=== PATIENT | female | born 1935 | race Caucasian/White ===

== ENCOUNTER 2017-10-28 18:33 | Inpatient (IN) ==
[2017-10-28] MEDS ORDERED: Naloxone 0.4 MG/ML INJ IVP PRN (23:56)
[2017-10-29] MEDS ORDERED: D5% in Water 1,000 ML IVC PRN (00:11)
[2017-10-29] MEDS ORDERED: Dextrose Gel 15 GM/37.5 ML TUBE PO PRN ×2 (00:11)
[2017-10-29] MEDS ORDERED: *HR* Dextrose 50 % in Water (Syg) 50 ML SYRINGE IVP PRN (00:11)
[2017-10-29] MEDS ORDERED: Nitroglycerin 0.4 MG TAB.SUBL SL PRN (00:19)
--- NOTE | 2017-10-29 00:19 | Internal Med History&Physical ---
Date of Encounter: 10/28/17 Time of Encounter: 23:00 Internal Medicine - H&P: HPI Chief complaint: Chest pain Admitted From: Home Plans for Post Hospital Care: Home History of present illness: Ms. Conroy is a 82 year old female transferred from [facility]. Patient present to ER for chest pain. Past medical history is significant for CAD S/P stent, A. fib on xarelto, diabetes, hypertension, HAIM on night oxygen. Patient said she has exertional shortness of breath and chest pain started from about 2 weeks ago. Symptoms is getting worse progressively. Small exertion can cause the pain and shortness of breath. Symptoms lasted several minutes and resolved after rest. Patient denies nausea, vomiting, or diaphoresis during chest pain. The chest pain located on mid chest, no radiation. In [facility], EKG shows A. fib, no significant ST changes. Chest x-ray negative. Patient was transferred to our hospital for further management. Past Med Surg Social Fam HX - Past Medical History Medical history: arthritis, asthma, atrial fibrillation, COPD, coronary artery disease, diabetes, GERD, hyperlipidemia, hypertension, renal disease, thyroid disease, other Psychiatric history: anxiety, depression, other - Past Surgical History Surgical History: cholecystectomy, knee replacement, orthopedic, other, EDEL/BSO , other - Social History Smoking Status: Never smoker Smokeless Tobacco Status: No Alcohol use: none Drug use: none - Family History Mother Adopted: No Living Status: Hx Family Cardiac Disorders: Yes Hx Family Endocrine Disorder: Yes (DM) Father Adopted: No Living Status: Hx Family Cancer: Yes (prostate) Brother Adopted: No Living Status: Still Living Hx Family Cardiac Disorders: Yes Hx Family Endocrine Disorder: Yes Sister Adopted: No Living Status: Still Living Hx Family Cardiac Disorders: No Hx Family Neurologic Disorders: Yes (CVA in [facility]) Internal Medicine - H&P: Meds Amiodarone [Cordarone] 200 mg PO DAILY 01/09/15 [History] Aspirin 81 mg PO DAILY 01/09/15 [History] Atorvastatin Calcium [Lipitor] 40 mg PO DAILY 01/09/15 [History] Folic Acid 1 mg PO DAILY 01/09/15 [History] Metoprolol [Lopressor] 25 mg PO BID 01/09/15 [History] Mv,Iron,Min/Folic Acid/Biotin [Hair, Skin and Nails Softgel] 66.7 mcg PO DAILY 01/09/15 [History] Oxygen 2 l NS HS 01/09/15 [History] Pantoprazole Sodium 40 mg PO DAILY 01/09/15 [History] Sertraline HCl [Zoloft] 50 mg PO DAILY 01/09/15 [History] Ferrous Sulfate [Iron Supplement] 325 mg PO DAILY 11/14/15 [History] Insulin LISPRO [Humalog Kwikpen U-100] 10 - 14 unit SQ DAILY 11/14/15 [History] Methotrexate [Otrexup] 5 mg PO QWEEK 11/14/15 [History] Naproxen Sodium [Aleve] 220 mg PO BID 11/14/15 [History] [place]-3 Fatty Acids [Fish Oil] 300 mg PO DAILY 11/14/15 [History] Amoxicillin [Amoxil] 500 mg PO TID #30 capsule 06/13/17 [Rx] HYDROcodone BIT/Homatropine LQ [Hycodan Syrup] 5 mg PO TID PRN #65 syrup [Rx] 3 Allergy/AdvReac Type Severity Reaction Status Date / Time citalopram Allergy unknown Verified 05/19/16 15:05 DASH Inhibitors AdvReac Cough Verified 05/19/16 15:05 ciprofloxacin [From Cipro] AdvReac edema Verified 05/19/16 15:05 doxycycline AdvReac Rash Verified 05/19/16 15:05 NSAIDS (Non-Steroidal AdvReac CONTRAINDIC Verified 05/19/16 15:05 Anti-Inflamma ATION All Systems PM: A 10-system review of systems was performed and is negative for pertinent findings except as documented above in the HPI. - Constitutional Vitals: Temp Pulse Resp BP Pulse Ox 97.8 F 83 18 174/85 95 10/28/17 23:11 10/28/17 23:11 10/28/17 23:11 10/28/17 23:11 10/28/17 23:11 General appearance: Present: A&O X 3, no acute distress, answers questions appropriately - Head Head exam: Present: atraumatic, normocephalic - Eye Eye exam: Present: PERRL, conjuntiva pink, sclera anicteric Pupils: Present: PERRL - Neck Neck exam general surgery: Present: supple, trachea midline. Absent: lymphadenopathy - Respiratory Respiratory exam: Present: CTAB. Absent: accessory muscle use, rales, rhonchi, wheezes - Cardiovascular Cardiovascular exam: Present: irregular rhythm, +S1, +S2. Absent: diastolic murmur, gallop, rubs, systolic murmur - GI/Abdominal GI/Abdominal exam: Present: normal bowel sounds, soft, no peritoneal signs. Absent: distended, tenderness - Extremities Exam Extremities exam: Present: pedal edema (Mild pedal edema bilaterally), warm, radial pulses palpable and symmetrical. Absent: calf tenderness, cyanotic - Neurological Exam Neurological exam: Present: CN II-XII intact, oriented X3, no focal deficits. Absent: pronater drift, facial droop, speech deficit - Skin Skin exam: Present: dry, intact Internal Med - H&P Results - EKG Data -: EKG Interpreted by Myself (Anel Fib, HR wnl) - Assessment and plan (1) Chest pain Current Visit: Yes Status: Acute Assessment and plan: Patient has chest pain on exertion. History of CAD S/P stent. The pain is more like stable angina. - Place patient on continuous cardiac monitoring. - Track 3 sets of troponin - Echocardiogram - We will consult cardiology to help the management. Qualifiers: Ischemic chest pain type: stable angina pectoris Qualified Code(s): I20.8 - Other forms of angina pectoris (2) Atrial fibrillation Current Visit: No Status: Acute Assessment and plan: Heart rate is well controlled at this point. Patient is on xarelto. Will hold xarelto because of positive guaiac test at this point. Continue ASA. Qualifiers: Atrial fibrillation type: chronic Qualified Code(s): I48.2 - Chronic atrial fibrillation (3) Coronary artery disease Current Visit: No Status: Acute Assessment and plan: Continue home medications aspirin, beta aditi, and statin, add NTG SL for chest pain. Qualifiers: Coronary Disease-Associated Artery/Lesion type: [place] artery [place] vs. transplanted heart: [place] heart Associated angina: with stable angina Qualified Code(s): I25.118 - Atherosclerotic heart disease of [place] coronary artery with other forms of angina pectoris (4) Stool guaiac positive Current Visit: No Status: Acute Assessment and plan: Patient is on xarelto for A. fib. Mild hemoglobin drop with guaiac positive. Vitals are stable. - Continue closely monitor vitals and hemoglobin level. - Consul GI for further management (5) Chronic kidney disease (CKD) stage G3a/A1, moderately decreased glomerular filtration rate (GFR) between 45-59 mL/min/1.73 square meter and albuminuria creatinine ratio less than 30 mg/g Current Visit: No Status: Chronic Assessment and plan: Stable at baseline (6) Diabetes mellitus Current Visit: No Status: Chronic Assessment and plan: Place patient on basal and sliding scale insulin coverage Qualifiers: Diabetes mellitus type: type 2 Diabetes mellitus fpc insulin use: with fpc use Diabetes mellitus complication status: with kidney complications Diabetes mellitus complication detail: with chronic kidney disease Chronic kidney disease stage: stage 3 (moderate) Qualified Code(s): E11.22 - Type 2 diabetes mellitus with diabetic chronic kidney disease; N18.3 - Chronic kidney disease, stage 3 (moderate); Z79.4 - terminal superintendent (current) use of insulin (7) CHF (congestive heart failure) Current Visit: Yes Status: Suspected Assessment and plan: Patient has exertional shortness of breath, elevated BNP, mild bilateral leg edema. Consider CHF. - We will start fluid restriction and low dose Lasix - Check echocardiogram - Cardiology consult for further management. Qualifiers: Heart failure type: unspecified Heart failure chronicity: acute on chronic Qualified Code(s): I50.9 - Heart failure, unspecified (8) HAIM (obstructive sleep apnea) Current Visit: Yes Status: Acute Assessment and plan: Patient uses nasal cannula oxygen at home during night. Will continue. - Time Spent With Patient Total time spent is greater than 50% in coordination of care (as documented) at patient's floor/unit and/or counseling patient: 40 minutes Greater than 35 minutes
[2017-10-29 01:14] LABS: Basophils # 0.1 K/mcL (0.0-0.2); Basophils % 0.8 %; Eosinophils # 0.3 K/mcL (0.0-0.6); Eosinophils % 3.6 %; Hematocrit 30.6 % (35.3-44.9); Hemoglobin 10.3 g/dL (11.5-15.4); Lymphocytes # 2.4 K/mcL (0.6-4.6); Lymphocytes % 25.4 %; Mean Corpuscular HGB Conc 33.7 g/dL (31.6-35.5); Mean Corpuscular Hemoglobin 31.8 pg (28.0-33.3); Mean Corpuscular Volume 94.4 fL (83.0-100.0); Mean Platelet Volume 11.4 fL (9.4-12.4); Monocytes # 0.7 K/mcL (0.0-1.3); Monocytes % 7.5 %; Neutrophils # 5.8 K/mcL (1.6-8.9); Platelet Count 168 K/mcL (140-400); Red Blood Count 3.24 M/mcL (3.82-4.97); Red Cell Distribution Width 15.3 % (11.5-14.5); Segmented Neutrophils % 61.7 %
[2017-10-29 01:34] LABS: Calcium 9.1 mg/dL (8.6-10.3); Chol/HDL Ratio 2.3 (0-4.9); Magnesium 1.8 mg/dL (1.6-2.6)
[2017-10-29 01:47] LABS: INR 1.3; Prothrombin Time 14.4 Seconds (9.4-12.1)
[2017-10-29] MEDS: Furosemide 20 MG/2 ML VIAL IVP SCH ×2 (02:14→08:19)
[2017-10-29] MEDS: Insulin LISPRO 300 UNITS/3 ML VIAL SQ SCH ×4 (08:01→20:54)
[2017-10-29] MEDS: Aspirin 81 MG TAB.CHEW PO SCH (08:19)
[2017-10-29] MEDS: Insulin DETEMIR 100 UNIT/ML X5UNITS SQ SCH (12:56)
--- NOTE | 2017-10-29 13:51 | Gastroenterology Consult Note ---
Date of Encounter: 10/29/17 Time of Encounter: 13:30 - Assessment and plan (1) Chronic anemia Current Visit: No Status: Acute Assessment and plan: Hgb 10.3 this AM. Continue to monitor CBC and transfuse PRBC as needed. No overt bleeding at this time. Will hold on EGD/colonoscopy at this time. If Hgb drops, will consider EGD/colonoscopy on Wednesday or Wednesday. (2) Stool guaiac positive Current Visit: No Status: Acute Assessment and plan: No overt bleeding at this time. No indication for colonoscopy. Will follow as outpatient. Monitor for bleeding. If Hgb decreases will consider EGD/ colonoscopy on Wednesday or Wednesday. (3) Chest pain Current Visit: Yes Status: Acute Assessment and plan: Troponin negative x2. Management per primary team. Qualifiers: Ischemic chest pain type: stable angina pectoris Qualified Code(s): I20.8 - Other forms of angina pectoris - Time Spent With Patient Total time spent is greater than 50% in coordination of care (as documented) at patient's floor/unit and/or counseling patient: GI History of Present Illness - Data of Consult Patient: new to practice Consult date: 10/29/17 Requesting Physician: Meenakshi Willoughby - Consult Narrative Reason for consult: FOBT positive History of present illness: Ms. Conroy is a 82 year old female with PMHx of arthritis, asthma, A fib, COPD, HAIM on night oxygen, CAD s/p stent, DM, GERD, HLD, HTN, renal disease, and thyroid disease who presented to [place] [facility] with chest pain. She complains of exertional shortness of breath and chest pain started from about 2 weeks ago. Symptoms are getting progressively worse. Symptoms lasted several minutes and resolved after rest. Patient denies nausea, vomiting, or diaphoresis during chest pain. We were consulted with mild anemia, Hgb 10.3 this AM. Pt has history of chronic anemia. She reports noticing blood in her stool once or twice about 2 weeks ago, and none since that time. She reports history of hemorrhoids. Procedures: Colonoscopy 11/14/2015 Dr. Austin: Diverticulosis. EGD 12/13/2014 Dr. Austin: Normal. NSAIDs: Aleve, ASA Anticoagulation: Xarelto Past Med Surg Social Fam HX - Past Medical History Medical history: arthritis, asthma, atrial fibrillation, COPD, coronary artery disease, diabetes, GERD, hyperlipidemia, hypertension, renal disease, thyroid disease, other Psychiatric history: anxiety, depression, other - Past Surgical History Surgical History: cholecystectomy, knee replacement, orthopedic, other, EDEL/BSO , other - Social History Smoking Status: Never smoker Smokeless Tobacco Status: No Alcohol use: none Drug use: none - Family History Mother Adopted: No Living Status: Hx Family Cardiac Disorders: Yes Hx Family Endocrine Disorder: Yes (DM) Father Adopted: No Living Status: Hx Family Cancer: Yes (prostate) Brother Adopted: No Living Status: Still Living Hx Family Cardiac Disorders: Yes Hx Family Endocrine Disorder: Yes Sister Adopted: No Living Status: Still Living Hx Family Cardiac Disorders: No Hx Family Neurologic Disorders: Yes (CVA in [facility] care) - Gastrointestinal Gastrointestinal: Present: as per HPI - Constitutional Constitutional: as per HPI - EENT Eyes: as per HPI Ears: Present: as per HPI Nose, mouth and throat: Present: as per HPI - Cardiovascular Cardiovascular ROS: Present: as per HPI - Respiratory Respiratory IM: Present: as per HPI - Genitourinary Genitourinary: Absent: change in color, Urinary frequency - Neurological ROS Neurological GI: Present: as per HPI - Hematologic/Lymphatic Hematologic/Lymphatic pediatric: Present: as per HPI - Musculoskeletal Musculoskeletal ROS GI: Present: as per HPI - Integumentary Integumentary GI: Present: as per HPI - Psychiatric ROS Psychiatric GI: Present: as per HPI - Endocrine Endocrine IM: Present: as per HPI - Constitutional Vitals: Temp Pulse Resp BP Pulse Ox 97.8 F 90 16 148/80 96 10/29/17 11:15 10/29/17 11:15 10/29/17 11:15 10/29/17 11:15 10/29/17 11:15 General appearance: Present: cooperative, A&O X 3, no acute distress, answers questions appropriately - Head Head exam: Present: atraumatic, normocephalic - Eye Eye exam: Present: normal appearance, sclera anicteric - ENT ENT exam: Present: mucous membranes dry - Neck Neck exam general surgery: Present: normal inspection, trachea midline - Respiratory Respiratory exam: Present: decreased breath sounds, CTAB - Cardiovascular Cardiovascular exam: Present: RRR, +S1, +S2 - GI/Abdominal GI/Abdominal exam: Present: soft, tenderness (mild), no peritoneal signs. Absent: distended, firm, guarding - Rectal Rectal exam: Present: deferred - Extremities Exam Extremities exam: Present: warm - Neurological Exam Neurological exam: Present: no focal deficits - Psychiatric Psychiatric exam: Present: normal affect, normal mood - Skin Skin exam: Present: dry, intact, normal color, warm Results - Labs CBC & Chem 7: 10/29/17 01:00 10/29/17 00:51 Labs: Last Result Calcium 9.1 mg/dL (8.6-10.3) 10/29/17 00:51 Troponin I < 0.03 ng/mL (< 0.04) 10/29/17 06:30 Triglycerides 103 mg/dL (< 150) 10/29/17 00:51 Entire Visit Hgb 10.3 g/dL (11.5-15.4) L 10/29/17 01:00 Hct 30.6 % (35.3-44.9) L 10/29/17 01:00 PT 14.4 Seconds (9.4-12.1) H 10/29/17 00:51 - ABG ABG results: PT/INR, D-dimer PT 14.4 Seconds (9.4-12.1) H 10/29/17 00:51 - Impressions Impressions Echocardiogram 10/29/17 00:02 Impressions: LVEF 60%. Normal LV chamber size, wall thickness and function. Indeterminate diastolic function. Normal right ventricular structure and function. Mild to moderate tricuspid regurgitation. Moderate-severe pulmonary hypertension. Estimated RVSP is 56 mmHg. Left Ventricular Wall Motion: Rest Echo Findings All wall segments showed normal motion. Findings: Study Quality * Technically adequate exam. ECG Findings * Atrial fibrillation. Left Ventricle * LVEF 60%. * Normal LV chamber size, wall thickness and function. * Indeterminate diastolic function. Right Ventricle * Normal right ventricular structure and function. Left Atrium * Severely dilated left atrium. Right Atrium * Moderately dilated right atrium. Aortic Valve * Trileaflet aortic valve with normal function. * No aortic regurgitation. * No aortic stenosis. Mitral Valve * Mildly calcified mitral valve leaflets. * Trace mitral regurgitation. * No mitral stenosis. Tricuspid Valve * Normal tricuspid valve structure. * Mild to moderate tricuspid regurgitation. * Moderate-severe pulmonary hypertension. * Estimated RVSP is 56 mmHg. * Estimated RA pressure is 5 mmHg. Pulmonic Valve * Normal pulmonic valve structure and function. * No pulmonic regurgitation. Aorta * Normally sized aortic root. Pericardium * The pericardium appears normal. IVC * Normal IVC dimensions and inspiratory collapse. Pulmonary Artery * Normal visualized portions of the main pulmonary artery. Aorta Ultrasound 10/29/17 10:00 IMPRESSION: No evidence of abdominal aortic aneurysm. D/ / Rebecca Fox MD / Rebecca Fox MD Interpreting Provider: Rebecca Fox MD Consult Discharge Plan - Plan Referrals: Bailee Kirby CNP [Primary Care Provider] -
--- NOTE | 2017-10-29 16:51 | Internal Med Progress Note ---
Date of Encounter: 10/29/17 Time of Encounter: 16:48 - Assessment and plan (1) Chronic kidney disease (CKD) stage G3a/A1, moderately decreased glomerular filtration rate (GFR) between 45-59 mL/min/1.73 square meter and albuminuria creatinine ratio less than 30 mg/g Current Visit: No Status: Chronic Assessment and plan: Stable at baseline at this time. We will continue to monitor creatinine Monitor intake and output daily weights Avoid nephrotoxins (2) Diabetes mellitus Current Visit: No Status: Chronic Assessment and plan: Accu-Cheks before meals at bedtime continue basal and sliding scale insulin coverage Qualifiers: Diabetes mellitus type: type 2 Diabetes mellitus assisted insulin use: with roasterman use Diabetes mellitus complication status: with kidney complications Diabetes mellitus complication detail: with chronic kidney disease Chronic kidney disease stage: stage 3 (moderate) Qualified Code(s): E11.22 - Type 2 diabetes mellitus with diabetic chronic kidney disease; N18.3 - Chronic kidney disease, stage 3 (moderate); Z79.4 - shelter (current) use of insulin (3) Atrial fibrillation Current Visit: No Status: Acute Assessment and plan: Heart rate controlled at this point. Patient is on xarelto. Will hold xarelto for now because of positive guaiac test at this point. Continue ASA. Qualifiers: Atrial fibrillation type: chronic Qualified Code(s): I48.2 - Chronic atrial fibrillation (4) Coronary artery disease Current Visit: No Status: Acute Assessment and plan: Continue home medications aspirin, beta aditi, and statin, add NTG SL for chest pain. Qualifiers: Coronary Disease-Associated Artery/Lesion type: [place] artery [place] vs. transplanted heart: [place] heart Associated angina: with stable angina Qualified Code(s): I25.118 - Atherosclerotic heart disease of [place] coronary artery with other forms of angina pectoris (5) Stool guaiac positive Current Visit: No Status: Acute Assessment and plan: Patient is on xarelto for A. fib. Mild hemoglobin drop with guaiac positive. Vitals are stable. - Continue closely monitor vitals and hemoglobin level. - Consul GI recommending monitoring H&H and transfuse as needed-we will hold off on EGD colonoscopy at this time if hemoglobin drops to consider EGD colonoscopy on Wednesday/Wednesday Hold Xarelto for now (6) Chest pain Current Visit: Yes Status: Acute Assessment and plan: Patient has chest pain on exertion. History of CAD S/P stent. The pain is more like stable angina. - Place patient on continuous cardiac monitoring. - troponin-negative 3 - Echocardiogram - Spoke with cardiology nurse practitioner Barbie Nelson recommending cardiac stress test-patient will be nothing by mouth after midnight for stress test in a.m. Qualifiers: Chest pain type: unspecified Qualified Code(s): R07.9 - Chest pain, unspecified (7) CHF (congestive heart failure) Current Visit: Yes Status: Suspected Assessment and plan: Patient has exertional shortness of breath, elevated BNP, mild bilateral leg edema. Consider CHF. - We will start fluid restriction and low dose Lasix - Check echocardiogram - Cardiology consult for further management. Qualifiers: Heart failure type: unspecified Heart failure chronicity: acute on chronic Qualified Code(s): I50.9 - Heart failure, unspecified (8) HAIM (obstructive sleep apnea) Current Visit: Yes Status: Acute Assessment and plan: Patient uses nasal cannula oxygen at home during night. Will continue. (9) DVT prophylaxis Current Visit: Yes Status: Acute Assessment and plan: 1 SCDs due to guaiac positive stool - Time Spent With Patient Total time spent is greater than 50% in coordination of care (as documented) at patient's floor/unit and/or counseling patient: - Subjective Interval history: Patient seen and examined at bedside presently chest pain-freesigns and symptoms of active bleeding at this time. I discussed treatment plan with patient who verbalized understanding and agreement . - Constitutional Vitals: Temp Pulse Resp BP Pulse Ox 98.6 F 97 16 125/70 90 10/29/17 16:09 10/29/17 16:09 10/29/17 16:09 10/29/17 16:09 10/29/17 16:09 General appearance: Present: A&O X 3, no acute distress, answers questions appropriately - Head Head exam: Present: atraumatic, normocephalic - Eye Eye exam: Present: PERRL, conjuntiva pink, sclera anicteric Pupils: Present: PERRL - Neck Neck exam general surgery: Present: supple, trachea midline. Absent: lymphadenopathy - Respiratory Respiratory exam: Present: CTAB. Absent: accessory muscle use, rales, rhonchi, wheezes - Cardiovascular Cardiovascular exam: Present: RRR, +S1, +S2. Absent: diastolic murmur, gallop, rubs, systolic murmur - GI/Abdominal GI/Abdominal exam: Present: normal bowel sounds, soft, no peritoneal signs. Absent: distended, tenderness - Extremities Exam Extremities exam: Present: warm, radial pulses palpable and symmetrical. Absent : calf tenderness, cyanotic, pedal edema - Neurological Exam Neurological exam: Present: CN II-XII intact, oriented X3, no focal deficits. Absent: pronater drift, facial droop, speech deficit - Skin Skin exam: Present: dry, intact Internal Medicine: Result - Labs CBC & Chem 7: 10/29/17 01:00 10/29/17 00:51 Labs: Short CBC 10/29/17 Range/Units 01:00 WBC 9.3 (4.3-11.1) K/mcL Hgb 10.3 L (11.5-15.4) g/dL Hct 30.6 L (35.3-44.9) % Plt Count 168 (140-400) K/mcL Neutrophils # 5.8 (1.6-8.9) K/mcL BMP 10/29/17 00:51 Sodium 140 Potassium 4.0 Chloride 108 H Carbon Dioxide 26 BUN 24 H Creatinine 1.32 H Glucose 99 Calcium 9.1 Cardiac Enzymes 10/29/17 10/29/17 Range/Units 01:00 06:30 Troponin I < 0.03 < 0.03 (< 0.04) ng/mL - ABG Interpretation ABG results: PT/INR, D-dimer PT 14.4 Seconds (9.4-12.1) H 10/29/17 00:51 - Impressions Impressions Echocardiogram 10/29/17 00:02 Impressions: LVEF 60%. Normal LV chamber size, wall thickness and function. Indeterminate diastolic function. Normal right ventricular structure and function. Mild to moderate tricuspid regurgitation. Moderate-severe pulmonary hypertension. Estimated RVSP is 56 mmHg. Left Ventricular Wall Motion: Rest Echo Findings All wall segments showed normal motion. Findings: Study Quality * Technically adequate exam. ECG Findings * Atrial fibrillation. Left Ventricle * LVEF 60%. * Normal LV chamber size, wall thickness and function. * Indeterminate diastolic function. Right Ventricle * Normal right ventricular structure and function. Left Atrium * Severely dilated left atrium. Right Atrium * Moderately dilated right atrium. Aortic Valve * Trileaflet aortic valve with normal function. * No aortic regurgitation. * No aortic stenosis. Mitral Valve * Mildly calcified mitral valve leaflets. * Trace mitral regurgitation. * No mitral stenosis. Tricuspid Valve * Normal tricuspid valve structure. * Mild to moderate tricuspid regurgitation. * Moderate-severe pulmonary hypertension. * Estimated RVSP is 56 mmHg. * Estimated RA pressure is 5 mmHg. Pulmonic Valve * Normal pulmonic valve structure and function. * No pulmonic regurgitation. Aorta * Normally sized aortic root. Pericardium * The pericardium appears normal. IVC * Normal IVC dimensions and inspiratory collapse. Pulmonary Artery * Normal visualized portions of the main pulmonary artery. Aorta Ultrasound 10/29/17 10:00 IMPRESSION: No evidence of abdominal aortic aneurysm. D/ / Rebecca Fox MD / Rebecca Fox MD Interpreting Provider: Rebecca Fox MD Consult Discharge Plan - Plan Referrals: Bailee Kirby DRESS MARKER [Primary Care Provider] -
[2017-10-30 05:47] LABS: Basophils # 0.1 K/mcL (0.0-0.2); Basophils % 0.6 %; Eosinophils # 0.2 K/mcL (0.0-0.6); Hematocrit 30.4 % (35.3-44.9); Hemoglobin 9.7 g/dL (11.5-15.4); Immature Granulocytes % 0.4 % (0-4); Lymphocytes # 1.4 K/mcL (0.6-4.6); Lymphocytes % 17.1 %; Mean Corpuscular HGB Conc 31.9 g/dL (31.6-35.5); Mean Corpuscular Hemoglobin 30.5 pg (28.0-33.3); Mean Corpuscular Volume 95.6 fL (83.0-100.0); Mean Platelet Volume 11.4 fL (9.4-12.4); Monocytes # 0.7 K/mcL (0.0-1.3); Monocytes % 8.7 %; Neutrophils # 5.6 K/mcL (1.6-8.9); Platelet Count 181 K/mcL (140-400); Red Blood Count 3.18 M/mcL (3.82-4.97); Red Cell Distribution Width 15.5 % (11.5-14.5); Segmented Neutrophils % 70.2 %
[2017-10-30 06:05] LABS: Calcium 9.2 mg/dL (8.6-10.3)
[2017-10-30] MEDS: Insulin LISPRO 300 UNITS/3 ML VIAL SQ SCH ×4 (07:30→20:26)
[2017-10-30] MEDS: Furosemide 20 MG/2 ML VIAL IVP SCH (11:10)
[2017-10-30] MEDS: Aspirin 81 MG TAB.CHEW PO SCH (11:10)
[2017-10-30] MEDS: Insulin DETEMIR 100 UNIT/ML X5UNITS SQ SCH (11:11)
--- NOTE | 2017-10-30 11:34 | Internal Med Progress Note ---
Date of Encounter: 10/30/17 Time of Encounter: 11:33 - Assessment and plan (1) Chronic kidney disease (CKD) stage G3a/A1, moderately decreased glomerular filtration rate (GFR) between 45-59 mL/min/1.73 square meter and albuminuria creatinine ratio less than 30 mg/g Current Visit: No Status: Chronic Assessment and plan: Stable at baseline at this time. 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 Patient is on xarelto. Will hold xarelto for now because of positive guaiac test at this point. Continue ASA May need to consult cardiology current concerning anticoagulation. Zretcjllj-3-4 points for age 1.4 female one point for CHF for hypertension 1 point for diabetes Qualifiers: Atrial fibrillation type: chronic Qualified Code(s): I48.2 - Chronic atrial fibrillation (4) Coronary artery disease Current Visit: No Status: Acute Assessment and plan: Continue home medications aspirin, beta aditi, and statin, add NTG SL for chest pain. Qualifiers: Coronary Disease-Associated Artery/Lesion type: [place] artery [place] vs. transplanted heart: [place] heart Associated angina: with stable angina Qualified Code(s): I25.118 - Atherosclerotic heart disease of [place] coronary artery with other forms of angina pectoris (5) Stool guaiac positive Current Visit: No Status: Acute Assessment and plan: Patient is on xarelto for A. fib. Mild hemoglobin drop with guaiac positive. Vitals are stable. - Continue closely monitor vitals and hemoglobin level. - Consul GI recommending monitoring H&H and transfuse as needed-we will hold off on EGD colonoscopy at this time if hemoglobin drops to consider EGD colonoscopy on Wednesday/Wednesday Hold Antonietato for now (6) Chest pain Current Visit: Yes Status: Acute Assessment and plan: Patient has chest pain on exertion. History of CAD S/P stent. The pain is more like stable angina. - Place patient on continuous cardiac monitoring. - troponin-negative 3 - Echocardiogram - cardiac stress test-patient will be nothing by mouth after midnight for stress test in a.m. Qualifiers: Chest pain type: unspecified Qualified Code(s): R07.9 - Chest pain, unspecified (7) CHF (congestive heart failure) Current Visit: Yes Status: Suspected Assessment and plan: Patient presented exertional shortness of breath, elevated BNP, mild bilateral leg edema.-Improved - We will start fluid restriction -continue Lasix - Check echocardiogram - Cardiology consul as needed Qualifiers: Heart failure type: unspecified Heart failure chronicity: acute on chronic Qualified Code(s): I50.9 - Heart failure, unspecified (8) HAIM (obstructive sleep apnea) Current Visit: Yes Status: Acute (9) DVT prophylaxis Current Visit: Yes Status: Acute - Time Spent With Patient Total time spent is greater than 50% in coordination of care (as documented) at patient's floor/unit and/or counseling patient: - Subjective Interval history: Patient seen and examined at bedside presently chest pain-freesigns and symptoms of active bleeding at this time. Patient is to undergo cardiac stress test in the a.m. I discussed treatment plan with patient who verbalized understanding and agreement . - Constitutional Vitals: Temp Pulse Resp BP Pulse Ox 99.1 F 85 18 145/79 100 10/30/17 07:10 10/30/17 07:10 10/30/17 07:10 10/30/17 07:10 10/30/17 07:10 General appearance: Present: A&O X 3, no acute distress, answers questions appropriately - Head Head exam: Present: atraumatic, normocephalic - Eye Eye exam: Present: PERRL, conjuntiva pink, sclera anicteric Pupils: Present: PERRL Internal Medicine: Result - Labs CBC & Chem 7: 10/30/17 05:09 10/30/17 05:09 Labs: Short CBC 10/30/17 Range/Units 05:09 WBC 7.9 (4.3-11.1) K/mcL Hgb 9.7 L (11.5-15.4) g/dL Hct 30.4 L (35.3-44.9) % Plt Count 181 (140-400) K/mcL Neutrophils # 5.6 (1.6-8.9) K/mcL BMP 10/30/17 05:09 Sodium 141 Potassium 4.0 Chloride 103 Carbon Dioxide 32 H BUN 22 Creatinine 1.22 H Glucose 139 H Calcium 9.2 - ABG Interpretation ABG results: PT/INR, D-dimer PT 14.4 Seconds (9.4-12.1) H 10/29/17 00:51 - Impressions Impressions Echocardiogram 10/29/17 00:02 Impressions: LVEF 60%. Normal LV chamber size, wall thickness and function. Indeterminate diastolic function. Normal right ventricular structure and function. Mild to moderate tricuspid regurgitation. Moderate-severe pulmonary hypertension. Estimated RVSP is 56 mmHg. Left Ventricular Wall Motion: Rest Echo Findings All wall segments showed normal motion. Findings: Study Quality * Technically adequate exam. ECG Findings * Atrial fibrillation. Left Ventricle * LVEF 60%. * Normal LV chamber size, wall thickness and function. * Indeterminate diastolic function. Right Ventricle * Normal right ventricular structure and function. Left Atrium * Severely dilated left atrium. Right Atrium * Moderately dilated right atrium. Aortic Valve * Trileaflet aortic valve with normal function. * No aortic regurgitation. * No aortic stenosis. Mitral Valve * Mildly calcified mitral valve leaflets. * Trace mitral regurgitation. * No mitral stenosis. Tricuspid Valve * Normal tricuspid valve structure. * Mild to moderate tricuspid regurgitation. * Moderate-severe pulmonary hypertension. * Estimated RVSP is 56 mmHg. * Estimated RA pressure is 5 mmHg. Pulmonic Valve * Normal pulmonic valve structure and function. * No pulmonic regurgitation. Aorta * Normally sized aortic root. Pericardium * The pericardium appears normal. IVC * Normal IVC dimensions and inspiratory collapse. Pulmonary Artery * Normal visualized portions of the main pulmonary artery. Consult Discharge Plan - Plan Referrals: Bailee Kirby, TILLER WORKER [Primary Care Provider] -
[2017-10-30] MEDS: Acetaminophen 325 MG TABLET PO PRN (20:25)
[2017-10-31] MEDS ORDERED: Regadenoson 0.4 MG/5 ML SYRINGE IVP ONE (05:36)
[2017-10-31] MEDS: Insulin LISPRO 300 UNITS/3 ML VIAL SQ SCH ×4 (07:30→21:17)
[2017-10-31 08:14] LABS: Basophils # 0.1 K/mcL (0.0-0.2); Basophils % 0.8 %; Eosinophils # 0.3 K/mcL (0.0-0.6); Eosinophils % 4.4 %; Hematocrit 32.1 % (35.3-44.9); Hemoglobin 10.4 g/dL (11.5-15.4); Immature Granulocytes % 0.3 % (0-4); Lymphocytes # 1.7 K/mcL (0.6-4.6); Lymphocytes % 26.5 %; Mean Corpuscular HGB Conc 32.4 g/dL (31.6-35.5); Mean Corpuscular Volume 95.5 fL (83.0-100.0); Mean Platelet Volume 11.3 fL (9.4-12.4); Monocytes # 0.5 K/mcL (0.0-1.3); Monocytes % 8.2 %; Neutrophils # 3.9 K/mcL (1.6-8.9); Platelet Count 178 K/mcL (140-400); Red Blood Count 3.36 M/mcL (3.82-4.97); Red Cell Distribution Width 15.2 % (11.5-14.5); Segmented Neutrophils % 59.8 %
[2017-10-31 08:34] LABS: Calcium 9.3 mg/dL (8.6-10.3)
[2017-10-31 08:45] LABS: Potassium 4.2 mEq/L (3.5-5.1)
[2017-10-31] MEDS: Aspirin 81 MG TAB.CHEW PO SCH (10:32)
[2017-10-31] MEDS: Furosemide 20 MG/2 ML VIAL IVP SCH (10:32)
[2017-10-31] MEDS: Acetaminophen 325 MG TABLET PO PRN (10:39)
[2017-10-31] MEDS: Insulin DETEMIR 100 UNIT/ML X5UNITS SQ SCH (10:39)
--- NOTE | 2017-10-31 20:48 | Internal Med Progress Note ---
Date of Encounter: 10/31/17 Time of Encounter: 16:00 - Assessment and plan (1) Chronic kidney disease (CKD) stage G3a/A1, moderately decreased glomerular filtration rate (GFR) between 45-59 mL/min/1.73 square meter and albuminuria creatinine ratio less than 30 mg/g Current Visit: No Status: Chronic Assessment and plan: Stable at baseline at this time. 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 Patient is on xarelto. Will hold xarelto for now because of positive guaiac test at this point. Continue ASA consult cardiology current concerning anticoagulation. Vpalkykqh-0-5 points for age 1.4 female one point for CHF for hypertension 1 point for diabetes Qualifiers: Atrial fibrillation type: chronic Qualified Code(s): I48.2 - Chronic atrial fibrillation (4) Coronary artery disease Current Visit: No Status: Acute Assessment and plan: Continue home medications aspirin, beta aditi, and statin, add NTG SL for chest pain. Qualifiers: Coronary Disease-Associated Artery/Lesion type: [place] artery [place] vs. transplanted heart: [place] heart Associated angina: with stable angina Qualified Code(s): I25.118 - Atherosclerotic heart disease of [place] coronary artery with other forms of angina pectoris (5) Stool guaiac positive Current Visit: No Status: Acute Assessment and plan: Patient is on xarelto for A. fib. Mild hemoglobin drop with guaiac positive. Vitals are stable. - Continue closely monitor vitals and hemoglobin level. - Consul GI recommending monitoring H&H and transfuse as needed-we will hold off on EGD colonoscopy at this time if hemoglobin drops to consider EGD colonoscopy on Wednesday/Wednesday Hold Xarelto for now Hemoglobin continues to be stable no overt leaking from rectum no blood noted and stool at this time (6) Chest pain Current Visit: Yes Status: Acute Assessment and plan: Patient has chest pain on exertion. History of CAD S/P stent. The pain is more like stable angina. - Place patient on continuous cardiac monitoring. - troponin-negative 3 - Echocardiogram - cardiac stress test-negative for any ischemia or infarct Qualifiers: Chest pain type: unspecified Qualified Code(s): R07.9 - Chest pain, unspecified (7) CHF (congestive heart failure) Current Visit: Yes Status: Suspected Assessment and plan: Patient presented exertional shortness of breath, elevated BNP, mild bilateral leg edema.-Improved - Lasix DC - Check echocardiogram - Cardiology consul as needed Qualifiers: Heart failure type: unspecified Heart failure chronicity: acute on chronic Qualified Code(s): I50.9 - Heart failure, unspecified (8) HAIM (obstructive sleep apnea) Current Visit: Yes Status: Acute Assessment and plan: Patient uses nasal cannula oxygen at home during night. Will continue. (9) DVT prophylaxis Current Visit: Yes Status: Acute Assessment and plan: 1 SCDs due to guaiac positive stool (10) Anticoagulant-induced bleeding Current Visit: Yes Status: Acute Assessment and plan: Patient was on Xarelto for atrial fibrillation transthoracic F6. She had guaiac positive stool hemoglobin has been stable GI has been consult Patient has several bruises as well as oozing IV sites Right eye is bloodshot we will continue to monitor H&H-transfuse as needed Consulted cardiology concerning anticoagulation and atrial fibrillation - Time Spent With Patient Total time spent is greater than 50% in coordination of care (as documented) at patient's floor/unit and/or counseling patient: - Subjective Interval history: Patient seen and examined at bedside presently chest pain-patient has been experiencing bleeding from IV sites and bruising. She also has bloodshot right high. Patient did undergo a stress test today I did review the results with her which were negative for any ischemia or infarct. I also informed her that Dr. Harris will see patient in a.m. concerning anticoagulation. Patient verbalized understanding of treatment plan. - Constitutional Vitals: Temp Pulse Resp BP Pulse Ox 98.2 F 89 16 141/75 96 10/31/17 20:00 10/31/17 20:00 10/31/17 20:00 10/31/17 20:00 10/31/17 20:00 General appearance: Present: A&O X 3, no acute distress, answers questions appropriately - Head Head exam: Present: atraumatic, normocephalic - Eye Eye exam: Present: PERRL, conjuntiva pink, sclera anicteric Pupils: Present: PERRL Additional comments: Right eye was bloodshot - Neck Neck exam general surgery: Present: supple, trachea midline. Absent: lymphadenopathy - Respiratory Respiratory exam: Present: CTAB. Absent: accessory muscle use, rales, rhonchi, wheezes - Cardiovascular Cardiovascular exam: Present: RRR, +S1, +S2. Absent: diastolic murmur, gallop, rubs, systolic murmur - GI/Abdominal GI/Abdominal exam: Present: normal bowel sounds, soft, no peritoneal signs. Absent: distended, tenderness - Extremities Exam Extremities exam: Present: warm, radial pulses palpable and symmetrical. Absent : calf tenderness, cyanotic, pedal edema - Neurological Exam Neurological exam: Present: CN II-XII intact, oriented X3, no focal deficits. Absent: pronater drift, facial droop, speech deficit - Skin Skin exam: Present: dry, intact Internal Medicine: Result - Labs CBC & Chem 7: 10/31/17 07:35 10/31/17 07:35 Labs: Short CBC 10/31/17 Range/Units 07:35 WBC 6.6 (4.3-11.1) K/mcL Hgb 10.4 L (11.5-15.4) g/dL Hct 32.1 L (35.3-44.9) % Plt Count 178 (140-400) K/mcL Neutrophils # 3.9 (1.6-8.9) K/mcL BMP 10/31/17 07:35 Sodium 142 Potassium 4.2 Chloride 103 Carbon Dioxide 34 H BUN 25 H Creatinine 1.38 H Glucose 223 H Calcium 9.3 - ABG Interpretation ABG results: PT/INR, D-dimer PT 14.4 Seconds (9.4-12.1) H 10/29/17 00:51 Consult Discharge Plan - Plan Referrals: Bailee Kirby, JUVENILE JUSTICE OFFICER [Primary Care Provider] -
[2017-11-01 07:58] LABS: Basophils # 0.1 K/mcL (0.0-0.2); Basophils % 1.1 %; Eosinophils # 0.3 K/mcL (0.0-0.6); Eosinophils % 4.2 %; Hematocrit 36.3 % (35.3-44.9); Hemoglobin 11.5 g/dL (11.5-15.4); Immature Granulocytes % 0.5 % (0-4); Lymphocytes # 1.4 K/mcL (0.6-4.6); Lymphocytes % 22.5 %; Mean Corpuscular HGB Conc 31.7 g/dL (31.6-35.5); Mean Corpuscular Volume 101.1 fL (83.0-100.0); Mean Platelet Volume 11.4 fL (9.4-12.4); Monocytes # 0.5 K/mcL (0.0-1.3); Monocytes % 7.6 %; Neutrophils # 4.1 K/mcL (1.6-8.9); Platelet Count 169 K/mcL (140-400); Red Blood Count 3.59 M/mcL (3.82-4.97); Segmented Neutrophils % 64.1 %
[2017-11-01 08:04] LABS: Calcium 9.4 mg/dL (8.6-10.3); Potassium 3.7 mEq/L (3.5-5.1)
[2017-11-01] MEDS: Aspirin 81 MG TAB.CHEW PO SCH (08:42)
[2017-11-01] MEDS: Insulin LISPRO 300 UNITS/3 ML VIAL SQ SCH ×2 (08:43→12:35)
[2017-11-01] MEDS: Insulin DETEMIR 100 UNIT/ML X5UNITS SQ SCH (08:43)
[2017-11-01] MEDS ORDERED: Omega-3 Fatty Acids [Fish Oil] 300 MG PO SCH (09:00)
[2017-11-01] MEDS ORDERED: predniSONE 5 MG TABLET PO SCH (09:00)
[2017-11-01] MEDS ORDERED: Folic Acid 1 MG TABLET PO SCH (09:00)
[2017-11-01 11:22] VITALS: BP 127/67
--- NOTE | 2017-11-01 12:50 | Discharge Summary ---
- NOTES TO OUTPATIENT PROVIDER Notes to Outpatient Provider: -Follow up with GI as outpatient for outpatient EGD. -Started on lasix daily. -chem7 and CBC in week. -Stress test negative. - Cardiology ok with resuming Xarelto Orders not resulted at time of discharge: Pending orders 10/30/17 10:02 NM gokul perf SPECT multi [NM] Routine 11/02/17 04:00 CBC [Complete Blood Count] [HEME] AM 0400 Chem 7 [Basic Metabolic Panel] AM 0400 Date of Encounter: 11/01/17 Time of Encounter: 12:46 - Discharge Diagnosis (1) Chronic kidney disease (CKD) stage G3a/A1, moderately decreased glomerular filtration rate (GFR) between 45-59 mL/min/1.73 square meter and albuminuria creatinine ratio less than 30 mg/g Priority: Secondary Status: Chronic (2) Diabetes mellitus Priority: Secondary Status: Chronic Qualifiers: Diabetes mellitus type: type 2 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 termite helper 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 Diabetes mellitus complication status: with kidney complications Diabetes mellitus complication detail: with chronic kidney disease Chronic kidney disease stage: stage 3 (moderate) Qualified Code(s): E11.22 - Type 2 diabetes mellitus with diabetic chronic kidney disease; N18.3 - Chronic kidney disease, stage 3 (moderate); Z79.4 - penitentiary (current) use of insulin (3) Atrial fibrillation Priority: Secondary Status: Chronic Qualifiers: Atrial fibrillation type: chronic Qualified Code(s): I48.2 - Chronic atrial fibrillation (4) Coronary artery disease Priority: Secondary Status: Acute Qualifiers: Coronary Disease-Associated Artery/Lesion type: [place] artery [place] vs. transplanted heart: [place] heart Associated angina: with stable angina Qualified Code(s): I25.118 - Atherosclerotic heart disease of [place] coronary artery with other forms of angina pectoris (5) Stool guaiac positive Priority: Primary Status: Acute (6) Chest pain Priority: Primary Status: Acute Qualifiers: Chest pain type: unspecified Qualified Code(s): R07.9 - Chest pain, unspecified (7) CHF (congestive heart failure) Priority: Secondary Status: Suspected Qualifiers: Heart failure type: unspecified Heart failure chronicity: acute on chronic Qualified Code(s): I50.9 - Heart failure, unspecified (8) HAIM (obstructive sleep apnea) Priority: Secondary Status: Acute (9) DVT prophylaxis Priority: Secondary Status: Acute (10) Anticoagulant-induced bleeding Priority: Primary Status: Acute Hospital course: Ms. Conroy is a 82 year old female Past medical hx of asthma afib COPD CAD s/p stent afib on Xarelto DM GERD HLD HTN CKD 3 thyroid disease- Patient presented [place] [facility] with chest pain She has ahd exertional SOB and CP started 2 weeks sx progressively worsen. CP on exertion with SOB she was in afib, transfered to [facility] for further managment. BNP was elevated on presentation , lower extremity edema CXR Cardiomegaly with Left sided atelectasis. Stool occult positive. Hgb 9.3 Renal labs stable . She was given lasix, Xarelto was held HGB trend and remained stable. She was seen by GI who suggest outpatient EGD if no drop in HGB. She underwent cardiac stress test which was negative for ischemia/ infarct. Patient did have some conjunctiva hemorrhage, I did discuss case with Dr Guy concerning anticoagulation and found it acceptable to resume Xarelto and have patient follow up with outpatient labs and cardiology. I am sending patient home with prescription of lasix , advised patient to weigh herself daily and to have chem 7/CBC in one week. Also advised to follow up with GI, cardiology and PCP in one week. She verbalized understanding. I answered questions she is hemodynamically stable and ready for discharge Discharge discussed with: patient - Time Spent with Patient Total time spent providing and/or coordinating discharge services: - Discharge Medications Prescriptions: Furosemide [Lasix] 20 mg PO DAILY #14 tablet Home Medications: Aspirin 81 mg PO DAILY 01/09/15 [History] Atorvastatin Calcium [Lipitor] 80 mg PO DAILY 01/09/15 [History] Folic Acid 1 mg PO DAILY 01/09/15 [History] Metoprolol [Lopressor] 75 mg PO BID 01/09/15 [History] Mv,Iron,Min/Folic Acid/Biotin [Hair, Skin and Nails Softgel] 66.7 mcg PO DAILY 01/09/15 [History] Oxygen 2 l NS HS 01/09/15 [History] Pantoprazole Sodium 40 mg PO DAILY 01/09/15 [History] Sertraline HCl [Zoloft] 100 mg PO DAILY 01/09/15 [History] Ferrous Sulfate [Iron Supplement] 325 mg PO DAILY 11/14/15 [History] Methotrexate [Otrexup] 5 mg PO QWEEK 11/14/15 [History] Naproxen Sodium [Aleve] 220 mg PO BID 11/14/15 [History] Insulin ASPART [Novolog Flexpen] 100 unit SQ AD 10/29/17 [History] Insulin Glargine,Hum.rec.anlog [Lantus Solostar] 39 unit SQ DAILY 10/29/17 [ History] Rivaroxaban [Xarelto] 15 mg PO DAILY 10/29/17 [History] Tramadol HCl [Ultram] 50 mg PO BID PRN 10/29/17 [History] predniSONE [PredniSONE] 5 mg PO DAILY 10/29/17 [History] Furosemide [Lasix] 20 mg PO DAILY #14 tablet 11/01/17 [Rx] Allergies/Adverse Reactions: 3 Allergy/AdvReac Type Severity Reaction Status Date / Time citalopram Allergy unknown Verified 05/19/16 15:05 DASH Inhibitors AdvReac Cough Verified 05/19/16 15:05 ciprofloxacin [From Cipro] AdvReac edema Verified 05/19/16 15:05 doxycycline AdvReac Rash Verified 05/19/16 15:05 NSAIDS (Non-Steroidal AdvReac CONTRAINDIC Verified 05/19/16 15:05 Anti-Inflamma ATION Date of admission: 10/31/17 20:44 Primary care physician: Bailee Kirby CNP Consults: 10/29/17 00:05 Consult to Gastroenterology [CONS] Routine Consulting Provider: Gastroenterology Debbie Reason for Consult: Positive FOBT, on xarelto Call Completed: No 10/29/17 09:34 Consult to Nurse Navigator [CONS] Routine Comment: CHF Discharging clinician: Jossy Conroy Anticipated date of discharge: 11/01/17 - Constitutional Vitals: Temp Pulse Resp BP Pulse Ox 98.3 F 96 18 127/67 96 11/01/17 11:21 11/01/17 11:21 11/01/17 11:21 11/01/17 11:21 11/01/17 11:21 General appearance: Present: A&O X 3, no acute distress, answers questions appropriately - Head Head exam: Present: atraumatic, normocephalic - Eye Eye exam: Present: PERRL, conjuntiva pink, sclera anicteric Pupils: Present: PERRL - Neck Neck exam general surgery: Present: supple, trachea midline. Absent: lymphadenopathy - Respiratory Respiratory exam: Present: CTAB. Absent: accessory muscle use, rales, rhonchi, wheezes - Cardiovascular Cardiovascular exam: Present: RRR, +S1, +S2. Absent: diastolic murmur, gallop, rubs, systolic murmur - GI/Abdominal GI/Abdominal exam: Present: normal bowel sounds, soft, no peritoneal signs. Absent: distended, tenderness - Extremities Exam Extremities exam: Present: warm, radial pulses palpable and symmetrical. Absent : calf tenderness, cyanotic, pedal edema - Neurological Exam Neurological exam: Present: CN II-XII intact, oriented X3, no focal deficits. Absent: pronater drift, facial droop, speech deficit - Skin Skin exam: Present: dry, intact - Patient Status Disposition: Home, Self-Care Condition: Good Functional capacity at discharge: independent ambulation Overall status at discharge: patient is back to baseline - Ambulatory Orders Ambulatory Orders: Basic Metabolic Panel [CHEM] Time Frame: 1 Week, Facility: [facility], Location: Lab Complete Blood Count [HEME] Time Frame: 1 Week, Facility: [facility], Location: Lab - Discharge Instructions Instructions: Furosemide (By mouth), Atrial Fibrillation (DC), Chest Pain (DC) , Diabetes Mellitus Type 2 in Adults (DC), Anemia (GEN) Follow Up With: Mauricio Borden MD [Partnered Physician] - (Your appt has been web requested. The office will call you with a follow up appt. Please call them if they do not call you.) Bailee Kirby CNP [Primary Care Provider] - (Your appt has been web requested. The office will call you with a follow up appt. Please call them if they do not call you.) Federico Hall MD [Partnered Physician] - (Your appt has been web requested. The office will call you with a follow up appt. Please call them if they do not call you.) Additional Instructions: CBC,Chem 7 in one week Follow up with GI-DR Hall Follow up with PCP - Diet and Activity Activity: increase activity as tolerated Diet: diabetic diet, low fat, low cholesterol, low salt diet
--- NOTE | 2017-11-02 16:20 | Physician Discharge Referral ---
Home Health/Hosp Referral Info Transfer to: Home Health Provider in Charge Post Discharge: PCP - Diagnosis (1) Chest pain Priority: Primary Status: Resolved (2) Diabetes mellitus Priority: Secondary Status: Chronic (3) Chronic kidney disease (CKD) stage G3a/A1, moderately decreased glomerular filtration rate (GFR) between 45-59 mL/min/1.73 square meter and albuminuria creatinine ratio less than 30 mg/g Priority: Secondary Status: Chronic (4) Coronary artery disease Priority: Secondary Status: Chronic - Respiratory Orders None Smoking Cessation: Smoking cessation has been advised. For more information, call the [place] Tobacco Quit Line at 6-035-RWAB-NOW. - Diet/Nutrition Diet/Nutrition Orders: Cardiac, No Concentrated Sweets - Activity Activity Orders: Up ad randy - Services Needed Following services are medically necessary services: Nursing, Physical Therapy, Occupational Therapy Other Treatments: CBC and BMP in 1 week. - Transfer Medications Prescriptions: Furosemide [Lasix] 20 mg PO DAILY #14 tablet Home Medications: Aspirin 81 mg PO DAILY 01/09/15 [History] Atorvastatin Calcium [Lipitor] 80 mg PO DAILY 01/09/15 [History] Folic Acid 1 mg PO DAILY 01/09/15 [History] Metoprolol [Lopressor] 75 mg PO BID 01/09/15 [History] Mv,Iron,Min/Folic Acid/Biotin [Hair, Skin and Nails Softgel] 66.7 mcg PO DAILY 01/09/15 [History] Oxygen 2 l NS HS 01/09/15 [History] Pantoprazole Sodium 40 mg PO DAILY 01/09/15 [History] Sertraline HCl [Zoloft] 100 mg PO DAILY 01/09/15 [History] Ferrous Sulfate [Iron Supplement] 325 mg PO DAILY 11/14/15 [History] Methotrexate [Otrexup] 5 mg PO QWEEK 11/14/15 [History] Naproxen Sodium [Aleve] 220 mg PO BID 11/14/15 [History] Insulin ASPART [Novolog Flexpen] 100 unit SQ AD 10/29/17 [History] Insulin Glargine,Hum.rec.anlog [Lantus Solostar] 39 unit SQ DAILY 10/29/17 [ History] Rivaroxaban [Xarelto] 15 mg PO DAILY 10/29/17 [History] Tramadol HCl [Ultram] 50 mg PO BID PRN 10/29/17 [History] predniSONE [PredniSONE] 5 mg PO DAILY 10/29/17 [History] Furosemide [Lasix] 20 mg PO DAILY #14 tablet 11/01/17 [Rx] Allergies/Adverse Reactions: 3 Allergy/AdvReac Type Severity Reaction Status Date / Time citalopram Allergy unknown Verified 05/19/16 15:05 DASH Inhibitors AdvReac Cough Verified 05/19/16 15:05 ciprofloxacin [From Cipro] AdvReac edema Verified 05/19/16 15:05 doxycycline AdvReac Rash Verified 05/19/16 15:05 NSAIDS (Non-Steroidal AdvReac CONTRAINDIC Verified 05/19/16 15:05 Anti-Inflamma ATION Certification: Further, I certify that my clinical findings support that this patient is homebound (i.e. absences from home require considerable and taxing effort and are for medical reasons or zoroastrianism services or infrequently or short duration when for other reasons) because: Homebound Reason: Leaving home requires considerable and taxing effort due to condition, Severity of cardiac or pulmonary status limits activity tolerance Attestation: My signature below is to certify that this patient is under my care and that I, or nurse practitioner, or a physician's retail loan originator assistant working with me, has a face-to -face encounter with this patient.
== END 2017-11-01 14:20 | disposition home or self-care (01) | DRG 303 ==
LOC: 3BNU
PROVIDERS: ADMIT Internal Medicine Nephrology; ATTEND Internal Medicine Nephrology

== ENCOUNTER 2018-11-11 17:47 | Inpatient (IN) ==
[2018-11-11] MEDS ORDERED: *HR* Dextrose 50 % in Water (Syg) 50 ML SYRINGE IVP PRN (21:28)
[2018-11-11] MEDS ORDERED: Acetaminophen 325 MG TABLET PO PRN (21:28)
[2018-11-11] MEDS ORDERED: Dextrose Gel 15 GM/37.5 ML TUBE PO PRN ×2 (21:28)
[2018-11-11] MEDS ORDERED: Naloxone 0.4 MG/ML INJ IVP PRN (21:28)
[2018-11-11] MEDS ORDERED: traMADol 50 MG TABLET PO PRN (21:28)
[2018-11-11] MEDS ORDERED: Famotidine 20 MG/2 ML VIAL IVP ONE (21:28)
[2018-11-11] MEDS ORDERED: Insulin LISPRO 300 UNITS/3 ML VIAL SQ SCH (21:30)
[2018-11-11 21:53] LABS: Basophils % 0.2 %; Eosinophils # 0.1 K/mcL (0.0-0.6); Eosinophils % 0.5 %; Hematocrit 34.3 % (35.3-44.9); Hemoglobin 11.4 g/dL (11.5-15.4); Immature Granulocytes % 0.7 % (0-4); Lymphocytes % 7.9 %; Mean Corpuscular HGB Conc 33.2 g/dL (31.6-35.5); Mean Corpuscular Hemoglobin 30.4 pg (28.0-33.3); Mean Corpuscular Volume 91.5 fL (83.0-100.0); Mean Platelet Volume 10.9 fL (9.4-12.4); Monocytes # 1.1 K/mcL (0.0-1.3); Monocytes % 8.9 %; Neutrophils # 10.4 K/mcL (1.6-8.9); Platelet Count 162 K/mcL (140-400); Red Blood Count 3.75 M/mcL (3.82-4.97); Red Cell Distribution Width 14.1 % (11.5-14.5); Segmented Neutrophils % 81.8 %; White Blood Count 12.7 K/mcL (4.3-11.1)
[2018-11-11 22:00] LABS: INR 1.5; Prothrombin Time 16.4 Seconds (9.4-12.1)
[2018-11-11] MEDS ORDERED: Ipratropium/Albuterol Neb 3 ML IH PRN (22:08)
[2018-11-11 22:15] LABS: Albumin 2.9 g/dL (3.5-5.7); Bilirubin,Direct 0.2 mg/dL (0.0-0.2); Bilirubin,Indirect 0.4 mg/dL (0.0-1.2); Bilirubin,Total 0.6 mg/dL (0.3-1.0); Calcium 8.5 mg/dL (8.6-10.3); Potassium 4.1 mEq/L (3.5-5.1); Total Protein 5.9 g/dL (6.4-8.9)
--- NOTE | 2018-11-11 22:26 | Internal Med History&Physical ---
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 She underwent EGD on 08/09/18 demonstrating diffuse atrophic mucosa with biopsies obtained showed no evidence of malignancy and immunostain was negative for H. pylori. He presents on transfer from [facility] where her son took her because she has been feeling unwell and supposedly sleeping for the past 3 days. He says she feels generally weak and tired with poor appetite and subsequent weight loss. She also says she has been having pain in her right abdomen which concerned her for recurrence of her mal ignancy. In the ER she was seen hemodynamically stable and cruz-imaging was done which revealed no acute abnormalities other than mild urothelial thickening. Lab work revealed a WBC of 13, sodium 1:30, creatinine 3.12 which is greater than her baseline and normal lactic acid. Urine revealed too numerous to count white cells and large leukocyte esterase. She was transferred here for further care. Vitals: Reviewed General: Elderly woman lying in bed in NAD Skin: Warm, dry. HEENT: Dry mucous membranes. No conjunctivae pallor. Neck: No lymphadenopathy. No JVD. No carotid bruits. No palpable thyroid. Chest: Normal thoracic expansion. Normal breath sounds. Clear to auscultation. Heart: Irregularly irregular. No rubs or murmurs. Abdomen: Non-distended, soft and mildly tender to palpation in the right flank. No peritoneal reaction. Extremities: No clubbing, cyanosis or edema. No calf tenderness. Normal distal pulses. Neurological: Awake, alert and oriented to person, place and time. No focal deficits. Psych: Affect appropriate. Appears worried and anxious leading to some memory difficulty. Assessment/Plan 1. Dehydration: Based on her clinical exam secondary to poor oral intake over the last number of days. Will check CK to rule out rhabdomyolysis. Will place her on IVF maintenance. 2. Sepsis syndrome: As evidenced by leukocytosis and tachycardia. Concern that it may be secondary to UTI given the highly positive result and urothelial thickening. Will send urine and blood cultures and start ceftriaxone 1gr daily empirically. 3. Abdominal pain: Non-specific. Imaging studies done revealed no evidence of neoplastic recurrence and she has already completed radiation with a recent EGD showing negativity. Will order analgesics as needed. 4. Atrial fibrillation: Notably tachycardic on exam and irregular. Will get an EKG and monitor on telemetry. Continue daily aspirin and metoprolol. 5. Diabetes: Poorly controlled as evidenced by A1C. Will place on insulin sliding scale. Past Med Surg Social Fam HX - Past Medical History Medical history: arthritis, asthma, atrial fibrillation, cancer, COPD, coronary artery disease, diabetes, GERD, hyperlipidemia, hypertension, renal disease, thyroid disease, other Additional medical history: "stomach cancer" Psychiatric history: anxiety, depression, other - Past Surgical History Surgical History: angioplasty/stent, appendectomy, cholecystectomy, hysterectomy, knee replacement, orthopedic, other, EDEL/BSO, other Additional surgical history: spine surgery, stents - Social History Smoking Status: Never smoker Smokeless Tobacco Status: No Alcohol use: none Drug use: none - Family History Mother Adopted: No Living Status: Hx Family Cardiac Disorders: Yes Hx Family Endocrine Disorder: Yes (DM) Father Adopted: No Living Status: Hx Family Cancer: Yes (prostate) Brother Adopted: No Living Status: Still Living Hx Family Cardiac Disorders: Yes Hx Family Endocrine Disorder: Yes Sister Adopted: No Living Status: Still Living Hx Family Cardiac Disorders: No Hx Family Neurologic Disorders: Yes (CVA in custodial) Internal Medicine - H&P: Meds Acetaminophen [Tylenol 8 Hour] 650 mg PO AD PRN 06/01/18 [History] Aspirin [Lo-Dose Aspirin EC] 81 mg PO DAILY 06/01/18 [History] Insulin Glargine [Lantus] 26 unit SQ DAILY 06/01/18 [History] Insulin LISPRO [Humalog] 100 unit SQ AD PRN 06/01/18 [History] Metoprolol [Lopressor] 75 mg PO BID 06/01/18 [History] Potassium Chloride [Klor-Con 10] 10 meq PO DAILY 06/01/18 [History] Allergy/AdvReac Type Severity Reaction Status Date / Time citalopram Allergy unknown Verified 08/29/18 11:13 DASH Inhibitors AdvReac Cough Verified 08/29/18 11:13 ciprofloxacin [From Cipro] AdvReac edema Verified 08/29/18 11:13 doxycycline AdvReac Rash Verified 08/29/18 11:13 NSAIDS (Non-Steroidal AdvReac CONTRAINDIC Verified 08/29/18 11:13 Anti-Inflamma ATION All Systems PM: A 10-system review of systems was performed and is negative for pertinent findings except as documented above in the HPI. - Constitutional Vitals: Temp Pulse Resp BP Pulse Ox 98.3 F 112 16 143/77 96 11/11/18 20:03 11/11/18 20:03 11/11/18 20:03 11/11/18 20:03 11/11/18 20:03 Exam: . Internal Med - H&P Results - Labs CBC & Chem 7: 11/11/18 21:39 11/11/18 21:39 Labs: Short CBC 11/11/18 Range/Units 21:39 WBC 12.7 H (4.3-11.1) K/mcL Hgb 11.4 L (11.5-15.4) g/dL Hct 34.3 L (35.3-44.9) % Plt Count 162 (140-400) K/mcL Neutrophils # 10.4 H (1.6-8.9) K/mcL BMP 11/11/18 21:39 Sodium 132 L Potassium 4.1 Chloride 102 Carbon Dioxide 21 L BUN 55 H Creatinine 2.85 H Glucose 147 H Calcium 8.5 L Liver Function 11/11/18 Range/Units 21:39 Total Bilirubin 0.6 (0.3-1.0) mg/dL Direct Bilirubin 0.2 (0.0-0.2) mg/dL AST 12 L (13-39) Units/L ALT 5 L (7-52) Units/L Alkaline Phosphatase 63 (34-104) Units/L Albumin 2.9 L (3.5-5.7) g/dL - Time Spent With Patient Total time spent is greater than 50% in coordination of care (as documented) at patient's floor/unit and/or counseling patient: Greater than 35 minutes
[2018-11-11 22:28] LABS: Thyroid Stimulating Hormone 1.211 mcIU/mL (0.340-5.600)
[2018-11-11] MEDS ORDERED: *HR* Metoprolol 5 MG/5 ML VIAL IVP ONE (22:38)
[2018-11-11] MEDS: 0.9 % Sodium Chloride 1,000 ML IVC SCH (23:21)
[2018-11-12 04:10] LABS: Calcium 8.4 mg/dL (8.6-10.3); Potassium 3.8 mEq/L (3.5-5.1)
[2018-11-12] MEDS: *HR* Heparin 5,000 UNIT/ML VIAL SQ SCH ×2 (06:47→17:20)
[2018-11-12] MEDS: Aspirin Enteric Coated 81 MG Tablet PO SCH (08:34)
[2018-11-12] MEDS: 0.9 % Sodium Chloride 1,000 ML IVC SCH (08:36)
[2018-11-12] MEDS: cefTRIAXone 1,000 MG in Water for inj. (sterile) 20 ML 10 ML IVPB SCH (08:36)
[2018-11-12] MEDS: Insulin LISPRO 300 UNITS/3 ML VIAL SQ SCH ×3 (08:37→17:48)
[2018-11-12] MEDS ORDERED: 0.9 % Sodium Chloride 1,000 ML IVC SCH (12:04)
--- NOTE | 2018-11-12 12:07 | Internal Med Progress Note ---
Hospitalist Progress Note - Encounter Date of Encounter: 11/12/18 Time of Encounter: 10:45 - Subjective Interval History: H&P reviewed. Patient reports that her generalized weakness is improved. She was not sure about dysuria or urinary frequency but she does complain of fullness over suprapubic region. No fever overnight - Exam Vitals: Temp Pulse Resp BP Pulse Ox 98.0 F 105 18 155/86 96 11/12/18 07:42 11/12/18 07:42 11/12/18 07:42 11/12/18 07:42 11/12/18 07:42 Exam: Vitals: Reviewed General: Elderly woman lying in bed in NAD Heart: Irregularly irregular. No rubs or murmurs. Chest: Clear to auscultation. Abdomen: Soft, minimal suprapubic tenderness. : No CVA tenderness - Assessment and Plan (1) Acute on chronic kidney failure Current Visit: Yes Status: Acute Assessment and Plan: baseline Cr around 1.5, presented with 3.1 Improving with IVF, continue monitor I&O Avoid nephrotoxins (2) UTI (urinary tract infection) Current Visit: Yes Status: Acute Assessment and Plan: In the setting of leukocytosis, AoCKD, and suprapubic fullness, will treat with IV ROcephin follow up on blood and urine cultures (3) Atrial fibrillation Current Visit: No Status: Chronic Assessment and Plan: Beta aditi resumed not on anti-coagulation presumably due to frequent falls and advanced age, will discuss with the family members when they are available (4) Coronary artery disease Current Visit: No Status: Chronic Assessment and Plan: resume ASA, bb (5) Diabetes mellitus Current Visit: No Status: Chronic Assessment and Plan: low dose sliding scale (6) DVT prophylaxis Current Visit: No Status: Acute Assessment and Plan: Subcutaneous heparin - Summary of Assessment and Plan Summary of Assessment and Plan: PT/OT for possible placement - Time Spent with Patient Total time spent is greater than 50% in coordination of care (as documented) at patient's floor/unit and/or counseling patient: 25 - 35 minutes Plan of Care Discussed with: nurse Internal Medicine: Result - Labs CBC & Chem 7: 11/11/18 21:39 11/12/18 03:08 Labs: Short CBC 11/11/18 Range/Units 21:39 WBC 12.7 H (4.3-11.1) K/mcL Hgb 11.4 L (11.5-15.4) g/dL Hct 34.3 L (35.3-44.9) % Plt Count 162 (140-400) K/mcL Neutrophils # 10.4 H (1.6-8.9) K/mcL BMP 11/11/18 11/12/18 21:39 03:08 Sodium 132 L 135 L Potassium 4.1 3.8 Chloride 102 103 Carbon Dioxide 21 L 20 L BUN 55 H 54 H Creatinine 2.85 H 2.77 H Glucose 147 H 89 Calcium 8.5 L 8.4 L Liver Function 11/11/18 Range/Units 21:39 Total Bilirubin 0.6 (0.3-1.0) mg/dL Direct Bilirubin 0.2 (0.0-0.2) mg/dL AST 12 L (13-39) Units/L ALT 5 L (7-52) Units/L Alkaline Phosphatase 63 (34-104) Units/L Albumin 2.9 L (3.5-5.7) g/dL - ABG Interpretation ABG results: PT/INR, D-dimer PT 16.4 Seconds (9.4-12.1) H 11/11/18 21:39 (1) Acute on chronic kidney failure Qualifiers: Acute renal failure type: unspecified Chronic kidney disease stage: stage 3 (moderate) Qualified Code(s): N17.9 - Acute kidney failure, unspecified; N18.3 - Chronic kidney disease, stage 3 (moderate) (2) UTI (urinary tract infection) Qualifiers: Urinary tract infection type: acute cystitis Hematuria presence: without hematuria Qualified Code(s): N30.00 - Acute cystitis without hematuria (3) Atrial fibrillation Qualifiers: Atrial fibrillation type: chronic Qualified Code(s): I48.2 - Chronic atrial fibrillation (4) Coronary artery disease Qualifiers: Coronary Disease-Associated Artery/Lesion type: [place] artery [place] vs. 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
--- NOTE | 2018-11-12 13:29 | Electrocardiograph Report ---
[address] [address] Test Date: 2018-11-11 Pat Name: Rosina Conroy Department: 115 Room: 3A36 Gender: F Sql Report Analyst: : [id number] Requested By: Flo Olmstead Order Number: [id number] Reading MD: Jame German Measurements Intervals [place] Rate: 115 P: PA: 0 QRS: -26 QRSD: 152 T: -2 QT: 332 QTc: 400 Interpretive Statements ATRIAL FIBRILLATION WITH RAPID VENTRICULAR RESPONSE BORDERLINE LEFT AXIS DEVIATION RIGHT BUNDLE BRANCH BLOCK Electronically Signed On 11-12-2018 13:27:35 EDT by Jame German
[2018-11-12] MEDS ORDERED: D5% in 0.9% NACL 1,000 ML IVC SCH (13:30)
[2018-11-13 04:15] LABS: Basophils # 0.1 K/mcL (0.0-0.2); Basophils % 0.7 %; Eosinophils # 0.3 K/mcL (0.0-0.6); Hematocrit 34.2 % (35.3-44.9); Hemoglobin 11.1 g/dL (11.5-15.4); Immature Granulocytes % 0.6 % (0-4); Lymphocytes # 0.8 K/mcL (0.6-4.6); Lymphocytes % 9.4 %; Mean Corpuscular HGB Conc 32.5 g/dL (31.6-35.5); Mean Corpuscular Hemoglobin 30.1 pg (28.0-33.3); Mean Corpuscular Volume 92.7 fL (83.0-100.0); Mean Platelet Volume 10.7 fL (9.4-12.4); Monocytes # 0.8 K/mcL (0.0-1.3); Monocytes % 9.1 %; Neutrophils # 6.6 K/mcL (1.6-8.9); Platelet Count 173 K/mcL (140-400); Red Blood Count 3.69 M/mcL (3.82-4.97); Red Cell Distribution Width 14.2 % (11.5-14.5); Segmented Neutrophils % 76.2 %; White Blood Count 8.6 K/mcL (4.3-11.1)
[2018-11-13 04:35] LABS: Calcium 8.3 mg/dL (8.6-10.3); Potassium 3.6 mEq/L (3.5-5.1)
[2018-11-13] MEDS: *HR* Heparin 5,000 UNIT/ML VIAL SQ SCH ×2 (06:11→17:24)
[2018-11-13] MEDS: D5% in 0.9% NACL 1,000 ML IVC SCH ×2 (06:11→20:12)
[2018-11-13] MEDS: Insulin LISPRO 300 UNITS/3 ML VIAL SQ SCH ×3 (07:54→17:24)
[2018-11-13] MEDS: Aspirin Enteric Coated 81 MG Tablet PO SCH (09:02)
[2018-11-13] MEDS: cefTRIAXone 1,000 MG in Water for inj. (sterile) 20 ML 10 ML IVPB SCH (09:03)
--- NOTE | 2018-11-13 11:50 | Internal Med Progress Note ---
Hospitalist Progress Note - Encounter Date of Encounter: 11/13/18 Time of Encounter: 10:00 - Subjective Interval History: No acute events overnight. Pt reports improvement in her generalized weakness. No fever/chills, nausea/vomiting, or flank pain. - Exam Vitals: Temp Pulse Resp BP Pulse Ox 98.7 F 96 15 135/77 93 11/13/18 10:30 11/13/18 10:30 11/13/18 10:30 11/13/18 10:30 11/13/18 10:30 Exam: Vitals: Reviewed General: Elderly woman lying in bed in NAD Heart: Irregularly irregular. No rubs or murmurs. Chest: Clear to auscultation. Abdomen: Soft, minimal suprapubic tenderness. : No CVA tenderness - Assessment and Plan (1) Acute on chronic kidney failure Current Visit: Yes Status: Acute Assessment and Plan: baseline Cr around 1.5, presented with 3.1 Improving with IVF, continue monitor I&O Avoid nephrotoxins (2) UTI (urinary tract infection) Current Visit: Yes Status: Acute Assessment and Plan: In the setting of leukocytosis, AoCKD, and suprapubic fullness, will treat with IV ROcephin (D3) urine culture growing GNR, follow up follow up on blood cultures, NGTD (3) Atrial fibrillation Current Visit: No Status: Chronic Assessment and Plan: Beta aditi resumed not on anti-coagulation presumably due to frequent falls and advanced age, will discuss with the family members when they are available (4) Coronary artery disease Current Visit: No Status: Chronic Assessment and Plan: resume ASA, bb (5) Diabetes mellitus Current Visit: No Status: Chronic Assessment and Plan: BG remains borderline low, continue D5 NS for now (6) Physical deconditioning Current Visit: Yes Status: Acute Assessment and Plan: given her significant weakness, suspect she will need short-term [facility] placement for rehabilitation PT/OT ordered (7) DVT prophylaxis Current Visit: No Status: Acute Assessment and Plan: Subcutaneous heparin - Time Spent with Patient Total time spent is greater than 50% in coordination of care (as documented) at patient's floor/unit and/or counseling patient: 25 - 35 minutes Plan of Care Discussed with: patient (discussed with RN) Internal Medicine: Result - Labs CBC & Chem 7: 11/13/18 03:45 11/13/18 03:45 Labs: Short CBC 11/13/18 Range/Units 03:45 WBC 8.6 (4.3-11.1) K/mcL Hgb 11.1 L (11.5-15.4) g/dL Hct 34.2 L (35.3-44.9) % Plt Count 173 (140-400) K/mcL Neutrophils # 6.6 (1.6-8.9) K/mcL BMP 11/13/18 03:45 Sodium 137 Potassium 3.6 Chloride 107 Carbon Dioxide 22 L BUN 45 H Creatinine 2.33 H Glucose 65 L Calcium 8.3 L - ABG Interpretation ABG results: PT/INR, D-dimer PT 16.4 Seconds (9.4-12.1) H 11/11/18 21:39 (1) Acute on chronic kidney failure Qualifiers: Acute renal failure type: unspecified Chronic kidney disease stage: stage 3 (moderate) Qualified Code(s): N17.9 - Acute kidney failure, unspecified; N18.3 - Chronic kidney disease, stage 3 (moderate) (2) UTI (urinary tract infection) Qualifiers: Urinary tract infection type: acute cystitis Hematuria presence: without hematuria Qualified Code(s): N30.00 - Acute cystitis without hematuria (3) Atrial fibrillation Qualifiers: Atrial fibrillation type: chronic Qualified Code(s): I48.2 - Chronic atrial fibrillation (4) Coronary artery disease Qualifiers: Coronary Disease-Associated Artery/Lesion type: [place] artery [place] vs. transplanted heart: [place] heart Associated angina: with stable angina Qualified Code(s): I25.118 - Atherosclerotic heart disease of [place] coronary artery with other forms of angina pectoris (5) Diabetes mellitus Qualifiers: Diabetes mellitus type: type 2 Diabetes mellitus [facility] insulin use: with [facility] use Diabetes mellitus complication status: with kidney complications Diabetes mellitus complication detail: with chronic kidney disease Chronic kidney disease stage: stage 3 (moderate) Qualified Code(s): E11.22 - Type 2 diabetes mellitus with diabetic chronic kidney disease; N18.3 - Chronic kidney disease, stage 3 (moderate); Z79.4 - care home (current) use of insulin
[2018-11-14] MEDS ORDERED: Haloperidol Lactate 5 MG/ML VIAL IM ONE (05:16)
--- NOTE | 2018-11-14 05:45 | Event Note ---
Date of Encounter: 11/14/18 Time of Encounter: 04:26 Alerted by patient's nurse MARIA M Singh the patient's IV had infiltrated and she is a very hard stick. Patient has IV antibiotics scheduled for 09:00 and has also been receiving D5 with 0.9. Nurse instructed to call ICU for EPIV. Alerted at 05:10 the patient was very confused and angry and wishes to leave. No when necessary medications for agitation are ordered. Went to see patient immediately who is seated in the chair and calling her son on the phone telling him to come and get her. I approached the pt. and began talking with her. Pt. was unaware momentarily that she was in [place]. Pt. thought she was in a mental hospital. I assured her that she was at [place] [facility] and was here for a UTI infection and needed IV antibiotics. I stated that I was here to help her and to help her get well so she could go back home to live with her son Zack with whom she was talking to on the phone. After several minutes of re-orienting the patient, we offered to get her a pair of pajama pants so she wouldn't feel so exposed. SVP OF DIGITAL helped the pt. back into bed after she put on the pajama pants and ICU came to place IV. Pt. was much calmer once she was back in bed. Pts. confusion d/t UTI versus sundowning. Nurse instructed to monitor the pt. very closely and alert me immediately of any adverse changes or increasing agitation.
[2018-11-14] MEDS: *HR* Heparin 5,000 UNIT/ML VIAL SQ SCH (06:21)
[2018-11-14 08:35] LABS: Hematocrit 33.8 % (35.3-44.9); Hemoglobin 11.4 g/dL (11.5-15.4); Mean Corpuscular HGB Conc 33.7 g/dL (31.6-35.5); Mean Corpuscular Hemoglobin 30.6 pg (28.0-33.3); Mean Corpuscular Volume 90.9 fL (83.0-100.0); Mean Platelet Volume 11.1 fL (9.4-12.4); Platelet Count 178 K/mcL (140-400); Red Blood Count 3.72 M/mcL (3.82-4.97); Red Cell Distribution Width 14.5 % (11.5-14.5); White Blood Count 8.9 K/mcL (4.3-11.1)
[2018-11-14 08:54] LABS: Calcium 8.5 mg/dL (8.6-10.3); Potassium 4.3 mEq/L (3.5-5.1)
[2018-11-14 09:42] LABS: Basophils # 0.2 K/mcL (0.0-0.2); Eosinophils # 0.4 K/mcL (0.0-0.6); Lymphocytes # 0.7 K/mcL (0.6-4.6); Monocytes # 0.2 K/mcL (0.0-1.3); Neutrophils # 7.5 K/mcL (1.6-8.9)
[2018-11-14 09:43] LABS: Platelet Clumps Few (Not Present); Platelet Estimate Normal (Normal); Poikilocytosis 1+ (Not Present); Toxic Vacuolation Present (Not Present)
[2018-11-14] MEDS: Insulin LISPRO 300 UNITS/3 ML VIAL SQ SCH ×3 (09:55→17:58)
[2018-11-14] MEDS: Apixaban 2.5 MG TABLET PO SCH ×2 (09:56→21:28)
[2018-11-14] MEDS: cefTRIAXone 1,000 MG in Water for inj. (sterile) 20 ML 10 ML IVPB SCH (09:57)
[2018-11-14] MEDS: Aspirin Enteric Coated 81 MG Tablet PO SCH (10:03)
[2018-11-14] MEDS: cephALEXin 250 MG CAPSULE PO SCH ×2 (11:24→21:28)
--- NOTE | 2018-11-14 13:14 | Internal Med Progress Note ---
Hospitalist Progress Note - Encounter Date of Encounter: 11/14/18 Time of Encounter: 11:00 - Subjective Interval History: She feels significantly stronger today. Wants to know if she can be discharged home directly. No chest pain, SOB, fever/chills, or flank pain - Exam Vitals: Temp Pulse Resp BP Pulse Ox 97.5 F L 91 16 137/82 97 11/14/18 11:19 11/14/18 11:19 11/14/18 11:19 11/14/18 11:19 11/14/18 11:19 Exam: Vitals: Reviewed General: Elderly woman lying in bed in NAD Heart: Irregularly irregular. No rubs or murmurs. Chest: Clear to auscultation. Abdomen: Soft, minimal suprapubic tenderness. : No CVA tenderness - Assessment and Plan (1) Acute on chronic kidney failure Current Visit: Yes Status: Resolved Assessment and Plan: baseline Cr around 1.5, presented with 3.1 Improving with IVF, continue monitor I&O Avoid nephrotoxins (2) UTI (urinary tract infection) Current Visit: Yes Status: Acute Assessment and Plan: In the setting of leukocytosis, AoCKD, and suprapubic fullness, treated with 3 days of IV ROcephie urine culture grew cruz sensitive E. coli, will switch abx to keflex for the next 4 days follow up on blood cultures, NGTD (3) Atrial fibrillation Current Visit: No Status: Chronic Assessment and Plan: Beta aditi resumed upon med rec, she is noted to be on apixaban 2.5mg BId, will resume not on anti-coagulation presumably due to frequent falls and advanced age, will discuss with the family members when they are available (4) Coronary artery disease Current Visit: No Status: Chronic Assessment and Plan: resume ASA, bb (5) Diabetes mellitus Current Visit: No Status: Chronic Assessment and Plan: hold off on Amaryl low dose sliding scale (6) Physical deconditioning Current Visit: Yes Status: Acute Assessment and Plan: PT/OT recommended for ECF placement. Pt and pt's son agreeable, will initiate ECF referral after speaking to SW (7) DVT prophylaxis Current Visit: No Status: Acute Assessment and Plan: Subcutaneous heparin - Time Spent with Patient Total time spent is greater than 50% in coordination of care (as documented) at patient's floor/unit and/or counseling patient: 25 - 35 minutes Plan of Care Discussed with: patient (discussed with RN and SW/CM regarding disposition plan) Internal Medicine: Result - Labs CBC & Chem 7: 11/14/18 08:21 11/14/18 08:21 Labs: Short CBC 11/14/18 Range/Units 08:21 WBC 8.9 (4.3-11.1) K/mcL Hgb 11.4 L (11.5-15.4) g/dL Hct 33.8 L (35.3-44.9) % Plt Count 178 (140-400) K/mcL Neutrophils # 7.5 (1.6-8.9) K/mcL BMP 11/14/18 08:21 Sodium 137 Potassium 4.3 Chloride 111 H Carbon Dioxide 18 L BUN 35 H Creatinine 1.85 H Glucose 212 H Calcium 8.5 L - ABG Interpretation ABG results: PT/INR, D-dimer PT 16.4 Seconds (9.4-12.1) H 11/11/18 21:39 (1) Acute on chronic kidney failure Qualifiers: Acute renal failure type: unspecified Chronic kidney disease stage: stage 3 (moderate) Qualified Code(s): N17.9 - Acute kidney failure, unspecified; N18.3 - Chronic kidney disease, stage 3 (moderate) (2) UTI (urinary tract infection) Qualifiers: Urinary tract infection type: acute cystitis Hematuria presence: without hematuria Qualified Code(s): N30.00 - Acute cystitis without hematuria (3) Atrial fibrillation Qualifiers: Atrial fibrillation type: chronic Qualified Code(s): I48.2 - Chronic atrial fibrillation (4) Coronary artery disease Qualifiers: Coronary Disease-Associated Artery/Lesion type: [place] artery [place] vs. transplanted heart: [place] heart Associated angina: with stable angina Qualified Code(s): I25.118 - Atherosclerotic heart disease of [place] coronary artery with other forms of angina pectoris (5) Diabetes mellitus Qualifiers: Diabetes mellitus type: type 2 Diabetes mellitus [facility] insulin use: with long term care administrator use Diabetes mellitus complication status: with kidney complications Diabetes mellitus complication detail: with chronic kidney disease Chronic kidney disease stage: stage 3 (moderate) Qualified Code(s): E11.22 - Type 2 diabetes mellitus with diabetic chronic kidney disease; N18.3 - Chronic kidney disease, stage 3 (moderate); Z79.4 - long term care administrator (current) use of insulin
[2018-11-15 05:38] LABS: Calcium 8.9 mg/dL (8.6-10.3)
[2018-11-15 06:36] VITALS: BP 155/91
[2018-11-15] MEDS: Apixaban 2.5 MG TABLET PO SCH (08:35)
[2018-11-15] MEDS: Aspirin Enteric Coated 81 MG Tablet PO SCH (08:35)
[2018-11-15] MEDS: cephALEXin 250 MG CAPSULE PO SCH (08:35)
[2018-11-15] MEDS: Insulin LISPRO 300 UNITS/3 ML VIAL SQ SCH ×2 (08:37→12:41)
--- NOTE | 2018-11-15 10:12 | Discharge Summary ---
- NOTES TO OUTPATIENT PROVIDER Notes to Outpatient Provider: BMP in 3 days. Follow-up with nephrology/PCP outpatient before restarting lasix Date of Encounter: 11/15/18 Time of Encounter: 08:00 - Discharge Diagnosis (1) Acute on chronic kidney failure Priority: Primary Status: Resolved Qualifiers: Acute renal failure type: unspecified Chronic kidney disease stage: stage 3 (moderate) Qualified Code(s): N17.9 - Acute kidney failure, unspecified; N18.3 - Chronic kidney disease, stage 3 (moderate) (2) UTI (urinary tract infection) Priority: Secondary Status: Acute Qualifiers: Urinary tract infection type: acute cystitis Hematuria presence: without hematuria Qualified Code(s): N30.00 - Acute cystitis without hematuria (3) Atrial fibrillation Priority: Secondary Status: Chronic Qualifiers: Atrial fibrillation type: chronic Qualified Code(s): I48.2 - Chronic atrial fibrillation (4) Coronary artery disease Priority: Secondary Status: Chronic Qualifiers: Coronary Disease-Associated Artery/Lesion type: [place] artery [place] vs. transplanted heart: [place] heart Associated angina: with stable angina Qualified Code(s): I25.118 - Atherosclerotic heart disease of [place] coronary artery with other forms of angina pectoris (5) Diabetes mellitus Priority: Secondary Status: Chronic Qualifiers: Diabetes mellitus type: type 2 Diabetes mellitus buttermaker insulin use: with buttermaker use Diabetes mellitus complication status: with kidney complications Diabetes mellitus complication detail: with chronic kidney disease Chronic kidney disease stage: stage 3 (moderate) Qualified Code(s): E11.22 - Type 2 diabetes mellitus with diabetic chronic kidney disease; N18.3 - Chronic kidney disease, stage 3 (moderate); Z79.4 - [employer] (current) use of insulin (6) Physical deconditioning Priority: Secondary Status: Acute (7) DVT prophylaxis Priority: Secondary Status: Acute Hospital course: Ms. 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 Clinically improved with IVF and IV Rocephin. Urine culture came back +ve for cruz-sensitive E.coli and abx was switched to PO Keflex to complete a total of 7 days. Given her physical deconditioning following the medical illness, patient was recommended to be transferred to ECF but she opted to be discharged to home health instead which was also reasonable. Her lasix will remain on hold until PCP/Nephrology follow up with BMP in 3 days. Discharge discussed with: patient, nurse, social work, case management - Time Spent with Patient Total time spent providing and/or coordinating discharge services: 33 mins - Discharge Medications Prescriptions: New cephALEXin [Keflex] 250 mg PO BID 3 Days #6 capsule Continued Potassium Chloride [Klor-Con 10] 10 meq PO BIDWM Aspirin [Lo-Dose Aspirin EC] 81 mg PO DAILY Acetaminophen [Tylenol] 1,000 mg PO DAILY PRN PRN Reason: Pain Apixaban [Eliquis] 2.5 mg PO BID Glimepiride [Amaryl] 2 mg PO QAM Metoprolol Tartrate 75 mg PO BID Omeprazole [PriLOSEC] 40 mg PO DAILY Sertraline [Zoloft] 100 mg PO DAILY Insulin ASPART [Novolog Flexpen] 0 - 14 unit SQ TID Insulin Glargine,Hum.rec.anlog [Lantus Solostar] 37 unit SQ DAILY Discontinued Furosemide [Lasix] 40 mg PO DAILY Home Medications: Aspirin [Lo-Dose Aspirin EC] 81 mg PO DAILY 06/01/18 [History] Potassium Chloride [Klor-Con 10] 10 meq PO BIDWM 06/01/18 [History] Acetaminophen [Tylenol] 1,000 mg PO DAILY PRN 11/13/18 [History] Apixaban [Eliquis] 2.5 mg PO BID 11/13/18 [History] Glimepiride [Amaryl] 2 mg PO QAM 11/13/18 [History] Insulin ASPART [Novolog Flexpen] 0 - 14 unit SQ TID 11/13/18 [History] Insulin Glargine,Hum.rec.anlog [Lantus Solostar] 37 unit SQ DAILY 11/13/18 [History] Metoprolol Tartrate 75 mg PO BID 11/13/18 [History] Omeprazole [PriLOSEC] 40 mg PO DAILY 11/13/18 [History] Sertraline [Zoloft] 100 mg PO DAILY 11/13/18 [History] cephALEXin [Keflex] 250 mg PO BID 3 Days #6 capsule 11/15/18 [Rx] Allergies/Adverse Reactions: Allergy/AdvReac Type Severity Reaction Status Date / Time citalopram Allergy unknown Verified 08/29/18 11:13 DASH Inhibitors AdvReac Cough Verified 08/29/18 11:13 ciprofloxacin [From Cipro] AdvReac edema Verified 08/29/18 11:13 doxycycline AdvReac Rash Verified 08/29/18 11:13 NSAIDS (Non-Steroidal AdvReac CONTRAINDIC Verified 08/29/18 11:13 Anti-Inflamma ATION Date of admission: 11/14/18 15:52 Primary care physician: Bailee Kirby CNP Consults: 11/11/18 20:33 Consult to Nutrition [CONS] Routine Comment: Consulting Provider: NUTRITION Reason for Dietary Consult: MST Score Consult to General Office Dispatcher [CONS] Routine Reason for SW Consult: Discharge planning. Patient may need services on d/c. States that she lives with son and that this son was having surgery this month and would be in a nursing facility short term. 11/12/18 12:12 Consult to Occupational Therapy [CONS] Routine Comment: Evaluate, develop and implement POC Reason for Consult: Generalized weakness, UTI Does patient have active BEDREST order?: No Is patient medically & hemodynamically stable?: Yes Consult to Physical Therapy [CONS] Routine Comment: Evaluate, develop and implement POC Reason for Consult: Generalized weakness, UTI Does patient have active BEDREST order?: No Is patient medically & hemodynamically stable?: Yes - Constitutional Vitals: Temp Pulse Resp BP Pulse Ox 97.5 F L 81 16 155/91 97 11/15/18 06:31 11/15/18 06:31 11/15/18 06:31 11/15/18 06:31 11/15/18 06:31 Exam: Vitals: Reviewed General: Elderly woman lying in bed in NAD Heart: Irregularly irregular. No rubs or murmurs. Chest: Clear to auscultation. Abdomen: Soft, minimal suprapubic tenderness. : No CVA tenderness - Patient Status Disposition: Home Health Service Condition: Fair Functional capacity at discharge: independent ambulation Overall status at discharge: patient is progressing back to baseline - Discharge Instructions Instructions: Urinary Tract Infection in Women (DC), Diabetes Mellitus Type 2 in Adults (DC) Follow Up With: Bailee Kirby CNP [Primary Care Provider] - (Web request entered. Office will call patient with date and time of appointment. Thank you) - Diet and Activity Activity: resume usual activities as tolerated Diet: diabetic diet
--- NOTE | 2018-11-15 10:16 | Physician Discharge Referral ---
Home Health/Hosp Referral Info Transfer to: Home Health Provider in Charge Post Discharge: PCP - Diagnosis (1) Acute on chronic kidney failure Priority: Primary Status: Resolved (2) UTI (urinary tract infection) Priority: Secondary Status: Acute (3) Atrial fibrillation Priority: Secondary Status: Chronic (4) Coronary artery disease Priority: Secondary Status: Chronic (5) Diabetes mellitus Priority: Secondary Status: Chronic (6) Physical deconditioning Priority: Secondary Status: Acute (7) DVT prophylaxis Priority: Secondary Status: Acute - Respiratory Orders Smoking Cessation: Smoking cessation has been advised. For more information, call the [place] Tobacco Quit Line at 3-377-PMRD-NOW. - Services Needed Following services are medically necessary services: Nursing, Home Health Aide, Physical Therapy, Occupational Therapy - Transfer Medications Prescriptions: cephALEXin [Keflex] 250 mg PO BID 3 Days #6 capsule Home Medications: Aspirin [Lo-Dose Aspirin EC] 81 mg PO DAILY 06/01/18 [History] Potassium Chloride [Klor-Con 10] 10 meq PO BIDWM 06/01/18 [History] Acetaminophen [Tylenol] 1,000 mg PO DAILY PRN 11/13/18 [History] Apixaban [Eliquis] 2.5 mg PO BID 11/13/18 [History] Glimepiride [Amaryl] 2 mg PO QAM 11/13/18 [History] Insulin ASPART [Novolog Flexpen] 0 - 14 unit SQ TID 11/13/18 [History] Insulin Glargine,Hum.rec.anlog [Lantus Solostar] 37 unit SQ DAILY 11/13/18 [History] Metoprolol Tartrate 75 mg PO BID 11/13/18 [History] Omeprazole [PriLOSEC] 40 mg PO DAILY 11/13/18 [History] Sertraline [Zoloft] 100 mg PO DAILY 11/13/18 [History] cephALEXin [Keflex] 250 mg PO BID 3 Days #6 capsule 11/15/18 [Rx] Allergies/Adverse Reactions: Allergy/AdvReac Type Severity Reaction Status Date / Time citalopram Allergy unknown Verified 08/29/18 11:13 DASH Inhibitors AdvReac Cough Verified 08/29/18 11:13 ciprofloxacin [From Cipro] AdvReac edema Verified 08/29/18 11:13 doxycycline AdvReac Rash Verified 08/29/18 11:13 NSAIDS (Non-Steroidal AdvReac CONTRAINDIC Verified 08/29/18 11:13 Anti-Inflamma ATION Certification: Further, I certify that my clinical findings support that this patient is homebound (i.e. absences from home require considerable and taxing effort and are for medical reasons or [employer] services or infrequently or short duration when for other reasons) because: Homebound Reason: Patient requires assistance of a person or device to safely leave home Attestation: My signature below is to certify that this patient is under my care and that I, or nurse practitioner, or a physician's commercial escrow assistant working with me, has a [id number] encounter with this patient.
== END 2018-11-15 13:50 | disposition home health service (06) | DRG 683 ==
LOC: 3ANU → SUATTDRO 19:21 → 3ANU 11-12 20:39
PROVIDERS: ADMIT Internal Medicine Nephrology; ATTEND Internal Medicine

== ENCOUNTER 2019-09-01 01:26 | Inpatient (IN) ==
[2019-09-02] MEDS ORDERED: Naloxone 0.4 MG/ML INJ IVP PRN (04:23)
[2019-09-02 05:00] LABS: Prothrombin Time 10.8 Seconds (9.4-12.1)
[2019-09-02] MEDS ORDERED: D5% in Water 1,000 ML IVC PRN (05:20)
[2019-09-02] MEDS ORDERED: Dextrose Gel 15 GM/37.5 ML TUBE PO PRN ×2 (05:20)
[2019-09-02] MEDS ORDERED: *HR* Dextrose 50 % in Water (Syg) 50 ML SYRINGE IVP PRN (05:20)
[2019-09-02 05:25] LABS: Albumin 3.5 g/dL (3.5-5.7); Albumin/Globulin Ratio 1.3 (1.1-2.2); Bilirubin,Total 0.8 mg/dL (0.3-1.0); Calcium 9.2 mg/dL (8.6-10.3); Globulin 2.6 g/dL (2.4-3.5); Total Protein 6.1 g/dL (6.4-8.9); Troponin I 0.04 ng/mL (< 0.04)
[2019-09-02] MEDS ORDERED: Aspirin 325 MG TABLET PO ONE (06:15)
[2019-09-02] MEDS ORDERED: *HR* Enoxaparin 80 MG/0.8 ML SYRINGE SQ SCH ×2 (06:45)
[2019-09-02] MEDS: Insulin LISPRO 300 UNITS/3 ML VIAL SQ SCH ×3 (07:48→16:41)
[2019-09-02 08:16] LABS: Estimated Average Glucose 246 mg/dl
[2019-09-02] MEDS: Insulin DETEMIR 100 UNIT/ML X5UNITS SQ SCH (21:04)
[2019-09-02 22:49] LABS: Bilirubin,Urine Negative (Negative); Blood,Urine Negative (Negative); Clarity,Urine Cloudy (Clear); Color,Urine Yellow (Yellow); Glucose,Urine (UA) >=1000 mg/dL (Normal); Ketones,Urine Negative (Negative); Leukocyte Esterase,Urine Negative (Negative); Nitrite,Urine Negative (Negative); Protein,Urine Negative (Neg-Trace); Specific Gravity,Urine 1.021 (1.010-1.025); Urobilinogen,Urine Normal (Normal)
[2019-09-02 22:52] LABS: Bacteria,Urine None Seen per hpf (None-Few); Hyaline Casts,Urine None Seen per lpf (None-Few); Squamous Epithelial Cell,Urine Moderate per lpf (None-Few); WBC,Urine 0-3 per hpf (0-3)
[2019-09-02 22:59] LABS: Amphetamine Screen,Urine Negative ng/mL (Cutoff=1000); Barbiturate Screen,Urine Negative ng/mL (Cutoff=200); Benzodiazepines Screen,Urine Negative ng/mL (Cutoff=200); Cannabinoid Screen,Urine Negative ng/mL (Cutoff = 50); Cocaine Screen,Urine Negative ng/mL (Cutoff= 300); Opiate Screen,Urine Negative ng/mL (Cutoff=300); Phencyclidine Screen,Urine Negative ng/mL (Cutoff=25)
[2019-09-02 23:13] LABS: RBC,Urine 0-3 per hpf (0-3)
[2019-09-03] MEDS ORDERED: Preparation H Ointment 30 GM TUBE TP SCH (03:45)
[2019-09-03] MEDS: Preparation H Ointment 57 GM TUBE TP SCH ×4 (04:13→21:09)
[2019-09-03] MEDS: Insulin LISPRO 300 UNITS/3 ML VIAL SQ SCH ×3 (08:12→17:38)
[2019-09-03] MEDS ORDERED: Nitroglycerin 0.4 MG TAB.SUBL SL PRN (08:24)
[2019-09-03] MEDS ORDERED: Acetaminophen 325 MG TABLET PO PRN (11:12)
[2019-09-03] MEDS ORDERED: *HR* HYDROcodone/Acet 5/325 mg TABLET PO PRN (11:13)
[2019-09-03] MEDS: dexAMETHasone 4 MG TABLET PO SCH (11:40)
[2019-09-03] MEDS: Niacin (24 HR) 500 MG TAB.ER.24H PO SCH (11:40)
[2019-09-03] MEDS: Folic Acid 1 MG TABLET PO SCH (11:40)
[2019-09-03] MEDS: allopurinoL 100 MG TABLET PO SCH (11:40)
[2019-09-03] MEDS: Insulin DETEMIR 100 UNIT/ML X5UNITS SQ SCH (21:09)
[2019-09-04] MEDS: allopurinoL 100 MG TABLET PO SCH (08:30)
[2019-09-04] MEDS: dexAMETHasone 4 MG TABLET PO SCH (08:30)
[2019-09-04] MEDS: Niacin (24 HR) 500 MG TAB.ER.24H PO SCH (08:30)
[2019-09-04] MEDS: Preparation H Ointment 57 GM TUBE TP SCH (08:30)
[2019-09-04] MEDS: Folic Acid 1 MG TABLET PO SCH (08:30)
[2019-09-04] MEDS: Insulin LISPRO 300 UNITS/3 ML VIAL SQ SCH ×2 (08:31→12:08)
[2019-09-04] MEDS ORDERED: Isovue-370 500 ML BOTTLE IVP ONE ×2 (09:19→10:10)
[2019-09-04 10:09] LABS: Calcium 8.6 mg/dL (8.6-10.3); Potassium 4.1 mEq/L (3.5-5.1)
[2019-09-04 11:08] VITALS: BP 122/67
[2019-09-06] MEDS ORDERED: *HR* Methotrexate 2.5 MG TABLET PO SCH (09:00)
[2019-09-06] MEDS ORDERED: Ergocalciferol (VIT D2) 50,000 UNIT (1.25MG) CAP PO SCH (09:00)
== END 2019-09-04 15:53 | disposition home health service (06) | DRG 64 ==
LOC: 3BNU → SUATTDRO 09-02 02:09
PROVIDERS: ADMIT Student in an Organized Health Care Education/Training Program; ATTEND Internal Medicine